=== PATIENT | male | born 1955 | race Caucasian/White ===

== ENCOUNTER → 2016-05-12 | Outpatient (CLI) | payer BC | END | disposition home or self-care (01) ==

== ENCOUNTER → 2016-10-07 | Outpatient (CLI) | payer BC ==
--- NOTE | 2016-10-07 15:46 | MR ---
EXAMINATION TYPE: MR iac wo/w con DATE OF EXAM: 10/07/2016 COMPARISON: NONE HISTORY: vertigo CONTRAST: Performed utilizing 15 mL intravenous MultiHance gadolinium contrast. TECHNIQUE: Multiplanar, multiecho imaging on a 3.0 [place] magnet is performed through the brain. Atte ntion is paid to the internal auditory canals with thin section imaging. Postcontrast imaging is per formed through the internal auditory canals. FINDINGS:Craniovertebral junction is normal. The pituitary is normal. Diffusion-weighted imaging is performed. No suspicious hyperintensity is present to suggest an acute intracranial infarct or acute ischemic area. Signal within the brain is normal.. Thin section imaging is performed through the internal auditory canals and cerebellar pontine angles. No cerebellar pontine angle masses are evident. The internal auditory canals appear normal without expansion or erosion. Postcontrast imaging was performed. No suspicious enhancement is evident within the internal audito ry canals or the included portions of the brain. Note is made of some minimal mucosal thickening within maxillary sinuses. Mucosal thickening is withi n the anterior ethmoid air cells. Mastoid air cells are clear. IMPRESSIONS:1. Normal internal auditory canals.
== END | disposition home or self-care (01) ==
LOC: RADMRIMAIN 11:58
PROVIDERS: ATTEND Otolaryngology
DX: R42 Dizziness and giddiness (principal)
CPT/HCPCS: 70553; A9577

== ENCOUNTER → 2016-10-07 | Outpatient (CLI) | payer BC ==
--- NOTE | 2016-10-07 11:41 | US ---
EXAMINATION TYPE: US liver DATE OF EXAM: 10/07/2016 COMPARISON: NONE CLINICAL HISTORY: Elevated Liver Enzymes R74.8. Elevated LFT's EXAM MEASUREMENTS: Liver Length: 12.1 cm Gallbladder Wall: 0.2 cm CBD: 0.4 cm Right Kidney: 10.5 x 4.9 x 4.1 cm Pancreas: Obscured by bowel gas Liver: Heterogeneous, left lobe appeared enlarged, while right lobe appeared small in size Gallbladder: wnl Evidence for sonographic Jaramillo's sign: No CBD: wnl Right Kidney: wnl IMPRESSION: 1. No suspicious acute changes . Shunt abdomen is visualized appears normal
== END | disposition home or self-care (01) ==
LOC: RADUSWWP 10:52
PROVIDERS: ATTEND Family Medicine
DX: R74.8 Abnormal levels of other serum enzymes (principal); Z95.828 Presence of other vascular implants and grafts
CPT/HCPCS: 76705

== ENCOUNTER → 2016-11-21 | Outpatient (CLI) | payer BC ==
[2016-11-21 13:06] LABS: Blood Urea Nitrogen 16 mg/dL (9-20); Non-African American GFR(MDRD) >60 (>60 ml/min/1.73 sqM)
--- NOTE | 2016-11-21 14:23 | MR ---
EXAMINATION TYPE: MR angio head wo con DATE OF EXAM: 11/21/2016 COMPARISON: NONE HISTORY: transient alteration of awareness per order, imbalance per patient. TECHNIQUE: Time of flight images focusing on the [place] were performed without contrast.. 2-D and 3-D postprocessing imaging is performed. FINDINGS: There is codominant vertebrobasilar system. Vertebral arteries are patent to basilar juncti on. There is patent right-sided posterior communicating artery. There is hypoplastic left posterior c ommunicating artery. No significant stenosis or aneurysmal change is seen in the posterior circulatio n. Images of the anterior circulation show patent anterior communicating artery. There is no significant focal stenosis or aneurysmal change in the anterior circulation. IMPRESSION: No significant focal stenosis or aneurysmal change at the level of the [place].
--- NOTE | 2016-11-21 15:00 | MR ---
EXAMINATION TYPE: MR brain wo/w con DATE OF EXAM: 11/21/2016 COMPARISON: MRI internal auditory canal October 07, 2016. HISTORY: transient alteration of awareness (R40.4) per order, imbalance TECHNIQUE: Multiplanar, multisequence images of the brain and brainstem is performed without and with IV contras t, utilizing 16 mL intravenous MultiHance . FINDINGS: Diffusion weighted images demonstrate no evidence of a recent infarct or other diffusion ab normality. There is no extra-axial fluid collection or significant white matter signal abnormality. The ventricular system and cisternal spaces are normal in size and appearance. The brain volume is age appropriate. Midline structures demonstrate normal morphology. The craniocervical junction appears within normal limits. Post contrast images demonstrate no abnormal enhancement. The dural venous sinuses appear pa tent. There is mild mucosal thickening involving anterior ethmoid sinuses bilaterally otherwise the p aranasal sinuses are grossly clear. The globes are intact bilaterally. No suspicious fluid signal in the bilateral mastoid air cells is present. IMPRESSION: No significant finding is seen to account for patient's symptoms.
== END | disposition home or self-care (01) ==
LOC: RADMRIMAIN 12:29
PROVIDERS: ATTEND Psychiatry & Neurology Neurology
DX: R40.4 Transient alteration of awareness (principal); Z88.0 Allergy status to penicillin
CPT/HCPCS: 82565; 84520; 70544; 70553; A9577

== ENCOUNTER → 2017-01-23 | Outpatient (CLI) | payer BC ==
--- NOTE | 2017-01-23 09:30 | US ---
EXAMINATION TYPE: US liver DATE OF EXAM: 01/23/2017 COMPARISON: Liver ultrasound October 07, 2016 CLINICAL HISTORY: Abnormal Liver Enzymes R94.5. patient states alcohol abuse EXAM MEASUREMENTS: Liver Length: 13.6 cm Gallbladder Wall: 0.2 cm CBD: 0.5 cm Right Kidney: 10.7 x 4.6 x 5.0 cm Pancreas: limited views appear, wnl Liver: difficult to penetrate Gallbladder: wnl Evidence for sonographic Jaramillo's sign: no CBD: wnl Right Kidney: wnl Visualized pancreas is slightly heterogeneous. Visualized liver is heterogeneous in appearance withou t intrahepatic ductal dilatation. Evaluation for focal masses is suboptimal due to the heterogeneity. No significant change from prior study is seen. No significant ascites is seen on images saved. IMPRESSION: Persistent heterogeneous hyperechoic appearance of liver could reflect product of diffuse fatty infiltration or underlying hepatocellular disease. Imaging guided random biopsy for tissue mounika lysis can be performed if desired.
== END | disposition home or self-care (01) ==
LOC: RADUSWWP 08:14
PROVIDERS: ATTEND Family Medicine
DX: K76.89 Other specified diseases of liver (principal)
CPT/HCPCS: 76705

== ENCOUNTER 2020-08-24 15:56 | Inpatient (IN) | payer BC ==
[2020-08-24] MEDS ORDERED: SODIUM CHLORIDE 0.9% 1,000 ML IV ONE (16:41)
--- NOTE | 2020-08-24 16:55 | ED ---
Altered Mental Status HPI - General Chief Complaint: Altered Mental Status Stated Complaint: Confusion Time Seen by Provider: 08/24/20 16:00 Source: patient Mode of arrival: wheelchair Limitations: altered mental status - History of Present Illness Initial Comments: Patient is a 65-year-old male with past medical history of alcoholism who presents to the emergency department with reported altered mental status. Brother does accompany the patient helps provide the history. States that his brother drinks daily. He did speak with him on Monday and the patient was his normal intoxicated self. Yesterday was the patient's birthday. He was drinking heavily. States that he was talking to him on the phone and the patient was significantly confused. Reports that the patient was not familiar with his birthdate and was not answering questions appropriately. He thought this was due to his intoxicated state. Brother then checked on the patient earlier this morning. Patient reports that he did not have a drink after 6 PM last night. He continued to be confused. Patient denies previous history of stroke. Unsure if he fell and hit his head while intoxicated. Patient is not on any blood thinners. Reports that he does have a history of A. fib however had a cardioversion and has not had any issues. Patient denies any fevers or chills. No sick contacts. Does admit to a headache. No visual changes. Denies any weakness in his upper or lower extremities. Patient does have repetitive questioning however no dysarthria. No other alleviating, precipitating or modifying factors - Related Data Home Medications Medication Instructions Recorded Confirmed Acetaminophen Tab [Tylenol] 325 mg PO DAILY PRN 08/24/20 08/24/20 Allergies Allergy/AdvReac Type Severity Reaction Status Date / Time Penicillins Allergy Unknown Verified 08/24/20 19:11 Childhood Review of Systems ROS Statement: Those systems with pertinent positive or pertinent negative responses have been documented in the HPI. ROS Other: All systems not noted in ROS Statement are negative. Past Medical History Past Medical History: Hypertension, Sleep Apnea/CPAP/BIPAP Additional Past Medical History / Comment(s): CPAP. PATIENT STATES HIS BLOOD PRESSURE HAS BEEN ELEVATED RECENTLY. ETOH abuse History of Any Multi-Drug Resistant Organisms: None Reported Past Surgical History: Back Surgery Additional Past Surgical History / Comment(s): CERVICAL. Past Anesthesia/Blood Transfusion Reactions: No Reported Reaction Past Psychological History: No Psychological Hx Reported Smoking Status: Current every day smoker Past Alcohol Use History: Abuse Past Drug Use History: None Reported, Marijuana General Exam Limitations: altered mental status General appearance: alert, anxious, other (confused) Head exam: Present: atraumatic, normocephalic, normal inspection Eye exam: Present: normal appearance, PERRL, EOMI. Absent: scleral icterus, conjunctival injection, periorbital swelling ENT exam: Present: normal exam, mucous membranes moist Neck exam: Present: normal inspection. Absent: tenderness, meningismus, lymphadenopathy Respiratory exam: Present: normal lung sounds bilaterally. Absent: respiratory distress, wheezes, rales, rhonchi, stridor Cardiovascular Exam: Present: regular rate, irregular rhythm, normal heart sounds. Absent: systolic murmur, diastolic murmur, rubs, gallop, clicks GI/Abdominal exam: Present: soft, normal bowel sounds. Absent: distended, tenderness, guarding, rebound, rigid Neurological exam: Present: alert, other (confused. oriented x 1. Repetative questioning) Psychiatric exam: Present: anxious Skin exam: Present: warm, dry, intact, normal color. Absent: rash Course Vital Signs 08/24/20 08/24/20 08/24/20 16:02 19:28 20:29 Temperature 98.5 F Pulse Rate 97 102 H 83 Respiratory 18 18 18 Rate Blood Pressure 148/97 151/109 143/98 O2 Sat by Pulse 98 98 97 Oximetry - Reevaluation(s) Reevaluation #1: Spoke with Dr. Chavez - recommends CTA. Neurointerventionalist is paged 08/24/20 18:31 Reevaluation #2: 08/24/20 19:[address] Worrell - reviewing images Reevaluation #3: Spoke with Dr. Worrell who states the patient is too far past intervention - recommends aspirin and permissive hypertension. 08/24/20 20:21 Medical Decision Making - Medical Decision Making Upon arrival patient is placed into room 2. A thorough history and physical exam was performed. Patient does have global confusion however no focal neurologic deficits. IV is established. Laboratory studies were conducted. 12-lead EKG was performed which demonstrates the patient is currently in A. fib. Laboratory studies are reviewed and demonstrated a sodium of 130. AST and ALT are mildly elevated. Patient is sent over for a CT of his brain which does demonstrate a left MCA territory hypoattenuating area, suggestive of subacute/chronic infarct. Superimposed acute infarct cannot be entirely excluded. Because of this reason I did speak with Dr. Chavez for further recommendations. He does recommend CT angiography. The patient is placed in the stroke robot and does goes for CT of his head and neck. I do speak with the radiologist who states that angiography demonstrates near complete occlusion of the proximal left MCA M2 segment posterior division. Moderate left and right proximal ICA stenosis. I do speak with Dr. Worrell in regards to these findings. Inform him that the patient's last known well was on Monday. Dr. Worrell states that the stroke has completed itself at this time the patient would only benefit from an aspirin and permissive hypertension. The patient is given a liter bolus of saline and placed on 100 mL per hour. He does have an episode of A. fib with RVR however he was given Ativan and does have improvement in his heart rate. I did speak with Dr. wray who agree to admit the patient. Patient is placed on alcohol withdrawal protocol. I will consult neurology and cardiology on the floor. Patient remained in stable condition - Lab Data Result diagrams: 08/24/20 16:25 08/24/20 16:25 Lab Results 08/24/20 08/24/20 08/24/20 Range/Units 16:25 16:25 16:25 WBC 6.8 (3.8-10.6) k/uL RBC 5.08 (4.30-5.90) m/uL Hgb 18.1 H (13.0-17.5) gm/dL Hct 51.0 (39.0-53.0) % MCV 100.3 H (80.0-100.0) fL MCH 35.6 H (25.0-35.0) pg MCHC 35.5 (31.0-37.0) g/dL RDW 13.6 (11.5-15.5) % Plt Count 191 (150-450) k/uL MPV 8.7 Neutrophils % 78 % Lymphocytes % 12 % Monocytes % 7 % Eosinophils % 2 % Basophils % 1 % Neutrophils # 5.4 (1.3-7.7) k/uL Lymphocytes # 0.8 L (1.0-4.8) k/uL Monocytes # 0.5 (0-1.0) k/uL Eosinophils # 0.1 (0-0.7) k/uL Basophils # 0.0 (0-0.2) k/uL PT (9.0-12.0) sec INR (<1.2) APTT (22.0-30.0) sec Sodium 130 L (137-145) mmol/L Potassium 4.2 (3.5-5.1) mmol/L Chloride 97 L (98-107) mmol/L Carbon Dioxide 23 (22-30) mmol/L Anion Gap 10 mmol/L BUN 9 (9-20) mg/dL Creatinine 0.77 (0.66-1.25) mg/dL Est GFR (CKD-EPI)AfAm >90 (>60 ml/min/1.73 sqM) Est GFR (CKD-EPI)NonAf >90 (>60 ml/min/1.73 sqM) Glucose 135 H (74-99) mg/dL Calcium 9.5 (8.4-10.2) mg/dL Total Bilirubin 1.5 H (0.2-1.3) mg/dL AST 67 H (17-59) U/L ALT 82 H (4-49) U/L Alkaline Phosphatase 89 (38-126) U/L Ammonia (<30) umol/L Creatine Kinase 79 (55-170) U/L Troponin I <0.012 (0.000-0.034) ng/mL Total Protein 7.5 (6.3-8.2) g/dL Albumin 4.4 (3.5-5.0) g/dL Serum Alcohol <10 mg/dL 08/24/20 08/24/20 Range/Units 16:25 18:52 WBC (3.8-10.6) k/uL RBC (4.30-5.90) m/uL Hgb (13.0-17.5) gm/dL Hct (39.0-53.0) % MCV (80.0-100.0) fL MCH (25.0-35.0) pg MCHC (31.0-37.0) g/dL RDW (11.5-15.5) % Plt Count (150-450) k/uL MPV Neutrophils % % Lymphocytes % % Monocytes % % Eosinophils % % Basophils % % Neutrophils # (1.3-7.7) k/uL Lymphocytes # (1.0-4.8) k/uL Monocytes # (0-1.0) k/uL Eosinophils # (0-0.7) k/uL Basophils # (0-0.2) k/uL PT 11.1 (9.0-12.0) sec INR 1.1 (<1.2) APTT 22.9 (22.0-30.0) sec Sodium (137-145) mmol/L Potassium (3.5-5.1) mmol/L Chloride (98-107) mmol/L Carbon Dioxide (22-30) mmol/L Anion Gap mmol/L BUN (9-20) mg/dL Creatinine (0.66-1.25) mg/dL Est GFR (CKD-EPI)AfAm (>60 ml/min/1.73 sqM) Est GFR (CKD-EPI)NonAf (>60 ml/min/1.73 sqM) Glucose (74-99) mg/dL Calcium (8.4-10.2) mg/dL Total Bilirubin (0.2-1.3) mg/dL AST (17-59) U/L ALT (4-49) U/L Alkaline Phosphatase (38-126) U/L Ammonia 13 (<30) umol/L Creatine Kinase (55-170) U/L Troponin I (0.000-0.034) ng/mL Total Protein (6.3-8.2) g/dL Albumin (3.5-5.0) g/dL Serum Alcohol mg/dL - EKG Data EKG Comments: EKG demonstrates A. fib with a rate of 98. QRS 86. QTC of 388. Inverted T- wave in aVL. No acute ST segment elevations Critical Care Time Critical Care Time: Yes Critical Care Time: 32 minutes for multiple consultations with neurology and neurointensivist. Disposition Clinical Impression: Alcohol abuse, A-fib, CVA (cerebral vascular accident), Encephalopathy acute Disposition: ADMITTED IP TO THIS HOSP Condition: Serious Is patient prescribed a controlled substance at d/c from ED?: No Decision to Admit Reason: Admit from EC Decision Date: 08/24/20 Decision Time: 20:22
[2020-08-24 17:21] LABS: Basophils % (A) 1 %; Eosinophils # (A) 0.1 k/uL (0-0.7); Eosinophils % (A) 2 %; HGB 18.1 gm/dL (13.0-17.5); Lymphocytes # (A) 0.8 k/uL (1.0-4.8); Lymphocytes % (A) 12 %; MCH 35.6 pg (25.0-35.0); MCHC 35.5 g/dL (31.0-37.0); MCV 100.3 fL (80.0-100.0); Mean Platelet Volume 8.7; Monocytes # (A) 0.5 k/uL (0-1.0); Monocytes % (A) 7 %; Neutrophils # (A) 5.4 k/uL (1.3-7.7); Neutrophils % (A) 78 %; Platelet Count 191 k/uL (150-450); RBC 5.08 m/uL (4.30-5.90); RDW 13.6 % (11.5-15.5); WBC 6.8 k/uL (3.8-10.6)
[2020-08-24 17:31] LABS: ALT 82 U/L (4-49); AST 67 U/L (17-59); African American GFR (CKD) >90 (>60 ml/min/1.73 sqM); Albumin 4.4 g/dL (3.5-5.0); Alcohol <10 mg/dL; Alkaline Phosphatase 89 U/L (38-126); Anion Gap 10 mmol/L; Blood Urea Nitrogen 9 mg/dL (9-20); Calcium 9.5 mg/dL (8.4-10.2); Carbon Dioxide 23 mmol/L (22-30); Chloride 97 mmol/L (98-107); Creatine Kinase 79 U/L (55-170); Glucose 135 mg/dL (74-99); Non-African American GFR(CKD) >90 (>60 ml/min/1.73 sqM); Potassium 4.2 mmol/L (3.5-5.1); Sodium 130 mmol/L (137-145); Total Bilirubin 1.5 mg/dL (0.2-1.3); Total Protein 7.5 g/dL (6.3-8.2)
--- NOTE | 2020-08-24 18:06 | CT ---
EXAM: CT brain wo con CLINICAL HISTORY: Memory loss and confusion. COMPARISON: MR 11/21/2016. TECHNIQUE: Contiguous axial noncontrast images of the brain were obtained. Coronal and sagittal refor mats were generated and reviewed. Automated dose control was used for this exam. FINDINGS: There is no evidence for intracranial hemorrhage, mass effect or midline shift. There is interval mod erate hypoattenuation of the left MCA territory. Ventricular size and configuration is within normal limits for degree of parenchymal volume. The paranasal sinuses are clear. The mastoid air cells are clear. No evidence for calvarial fracture. IMPRESSION: Interval left MCA territory hypoattenuating area, suggestive of subacute/chronic infarct. Superimpose d acute infarct cannot be entirely excluded. If there is continued clinical concern, recommend MRI fo r further evaluation. No acute intracranial hemorrhage or midline shift.
[2020-08-24 19:13] LABS: INR 1.1 (<1.2); Partial Thromboplastin Time 22.9 sec (22.0-30.0); Prothrombin Time 11.1 sec (9.0-12.0)
[2020-08-24] MEDS ORDERED: LORazepam 2 MG/ML INJ IV STA (19:19)
--- NOTE | 2020-08-24 19:20 | CT ---
EXAM: CTA HEAD AND NECK INDICATION: Effusion COMPARISON: MR 11/21/2016. TECHNIQUE: CTA of the head and neck were performed with multiplanar and MIP reformats generated and r eviewed. Stenosis evaluation is based on [place] Symptomatic Carotid Endarterectomy Trial (FORTUNATO CET). 65 mL Isovue 370 intravenous contrast was administered. FINDINGS: There is normal three-vessel branching of the aorta. There is moderate approximately 50% stenosis of the left proximal ICA and mild less than 50% stenosis of the right proximal ICA. The remainder of the bilateral common carotid, cervical internal carotid and vertebral arteries are grossly patent. No ev idence of dissection or aneurysm. There is near complete occlusion of the left MCA proximal M2 segment posterior division. There is dec reased collateral vessels. The remainder of the intracranial internal carotid arteries, anterior, mid dle and posterior cerebral arteries as well as in the imaged vertebral and basilar arteries are paten t. No evidence of aneurysm. The communicating arteries are unremarkable. IMPRESSION: Near-complete occlusion of the proximal left MCA M2 segment posterior division. Moderate left and mild right proximal ICA stenosis. Findings were reported to caring physician by me at the time of dictation.
--- NOTE | 2020-08-24 19:34 | XR ---
EXAMINATION TYPE: XR chest 2V DATE OF EXAM: 08/24/2020 COMPARISON: 09/22/2014. HISTORY: Altered mental status. TECHNIQUE: Frontal and lateral views of the chest are obtained. FINDINGS: There is no focal air space opacity, pleural effusion, or pneumothorax seen. The cardiac silhouette size is within normal limits. The osseous structures are intact. Cervical spine fusion s een. IMPRESSION: No acute cardiopulmonary process.
[2020-08-24] MEDS ORDERED: ASPIRIN 325 MG TAB PO STA (20:10)
[2020-08-24] MEDS ORDERED: NALOXONE 0.4 MG/ML 1 ML VIAL IV PRN (20:22)
[2020-08-24] MEDS ORDERED: THIAMINE 100 MG/ML 2 ML VIAL IM STA (20:24)
[2020-08-24] MEDS ORDERED: LORazepam 2 MG/ML INJ IV PRN ×3 (20:24)
[2020-08-24] MEDS: 0.9% NACL WITH KCL 20 MEQ/L 1,000 ML IV SCH (21:52)
[2020-08-24] MEDS ORDERED: ATORVASTATIN 80 MG TAB PO SCH (23:30)
[2020-08-24] MEDS ORDERED: CLOPIDOGREL 75 MG TAB PO SCH (23:45)
[2020-08-25] MEDS: FAMOTIDINE 20 MG TAB PO SCH ×3 (00:04→20:13)
[2020-08-25] MEDS: THIAMINE 100 MG TAB PO SCH ×2 (06:31→17:44)
[2020-08-25] MEDS: 0.9% NACL WITH KCL 20 MEQ/L 1,000 ML IV SCH ×2 (06:52→16:58)
[2020-08-25 08:13] LABS: Cholesterol 155 mg/dL (<200); HDL Cholesterol 52 mg/dL (40-60); LDL Cholesterol,Calculated 82 mg/dL (0-99); Triglycerides 103 mg/dL (<150)
--- NOTE | 2020-08-25 08:45 | P.CNNES ---
History of Present Illness Consult date: 08/24/20 Requesting physician: Catherine Dickson Reason for Consult: Acute CVA History of Present Illness: Patient is a 65-year-old right-handed male came to the hospital today at 4 PM, brought by a friend for possible stroke. Patient states that on late 08/21/2020, all of a sudden he had a blackout spell. He does not know what he was doing at that time. He does not remember details about it. However he remembers that after this spell, something changed and he had problems with memory. He states that he came to the hospital to be checked out, wants to see "what is happening to me". He has trouble remembering things in the last couple days. Denies any numbness or tingling. He has developed pain in the head when he coughs in the last few days. It involves bifrontal region and it is a bad headache. He states he never gets a headache ever in his life. Apparently his friend came over and saw him with confusion. Patient also drinks half a gallon to a gallon of captbhumika Azul every day. Patient denies any numbness tingling or any focal weakness. Vital signs arrival blood pressure 148/97, pulse rate 97, temperature 98.5. CT head showed interval left MCA territory hypoattenuation, suggestive of subac [place]/chronic infarct. Superimposed acute infarct cannot be entirely excluded. MRI recommended. No acute hemorrhage. There is hyperdensity noted in the left MCA on my review. CTA of head and neck revealed near complete occlusion of the proximal left MCA M2 segment posterior division. Moderate left and mild right proximal ICA stenosis. Chest x-ray showed no acute cardiopulmonary disease. EKG shows atrial fibrillation. Blood test shows normal WBC, hemoglobin 18.1, elevated MCV 100.3, platelets 191. PT/PTT normal, sodium 130, potassium 4.2, normal renal functions. AST 67, ALP 82. CPK and troponin negative. Blood alcohol level negative. Patient states that he has smoked couple pack per day all his life for last 50 years. He denies diabetes area does not take any aspirin or any medications on a regular basis. Review of Systems As mentioned above in detail. Denies any double vision, no loss of vision denies any numbness tingling. No chest pain abdominal pain nausea vomiting diarrhea. Past Medical History Past Medical History: Atrial Fibrillation, Hypertension, Sleep Apnea/CPAP/BIPAP Additional Past Medical History / Comment(s): CPAP. PATIENT STATES HIS BLOOD PRESSURE HAS BEEN ELEVATED RECENTLY. ETOH abuse History of Any Multi-Drug Resistant Organisms: None Reported Past Surgical History: Back Surgery Additional Past Surgical History / Comment(s): CERVICAL. Past Anesthesia/Blood Transfusion Reactions: No Reported Reaction Past Psychological History: No Psychological Hx Reported Smoking Status: Current every day smoker Past Alcohol Use History: Abuse Additional Past Alcohol Use History / Comment(s): PAST HX OF ABUSE Past Drug Use History: None Reported, Marijuana Medications and Allergies Home Medications Medication Instructions Recorded Confirmed Type Acetaminophen Tab [Tylenol] 325 mg PO DAILY PRN 08/24/20 08/24/20 History Allergies Allergy/AdvReac Type Severity Reaction Status Date / Time Penicillins Allergy Unknown Verified 08/24/20 19:11 Childhood Physical Examination - Vital Signs Vital Signs: Vital Signs Temp Pulse Resp BP Pulse Ox 08/24/20 20:29 83 18 143/98 97 08/24/20 19:28 102 H 18 151/109 98 08/24/20 16:02 98.5 F 97 18 148/97 98 Intake and Output 08/24/20 08/24/20 08/24/20 06:59 14:59 22:59 Other: Weight 81.647 kg On examination patient is a late middle aged male, in no acute distress. He is alert and awake. He states it is 08/24/2012, but then said was 2010 and then finally said by himself it is 2020. He knows name of the current president and that he is in [facility]. Patient can name without difficulty, however he cannot repeat. His speech is fluent, has some times hesitancy in speaking. I did not notice any obvious paraphasic errors. He has intact comprehension, but required repeated and numerous attempts before he was able to follow directions like "point to the window, or point to the ceiling", and "show me your thumb". However he did perform it correctly. Patient was able to read without much difficulty but had slight difficulty following the commands. Slow mentation. On cranial examination pupils are round and reactive to light, visual briceno are full on confrontation, extraocular muscles are intact with no nystagmus. Face is symmetric, tongue protrudes to the midline. Palatal elevation and sensation normal, hearing is slightly decreased and shoulder shrug normal, facial sensation normal. On muscle strength testing there is no pronator drift and the strength is normal in arms and legs, distally and proximally. Deep tendon reflexes are 1+ and plantars downgoing. Sensory to touch is equal with no neglect. No ataxia for [id number] testing, tone and bulk of muscles normal. Gait deferred. On general examination there is no carotid bruit or murmur, peripheral pulses present, abdomen soft nontender, chest clear. S1 and S2 audible. Results - Laboratory Findings CBC and BMP: 08/24/20 16:25 08/24/20 16:25 Abnormal Lab Findings: Abnormal Labs 08/24/20 08/24/20 16:25 16:25 Hgb 18.1 H MCV 100.3 H MCH 35.6 H Lymphocytes # 0.8 L Sodium 130 L Chloride 97 L Glucose 135 H Total Bilirubin 1.5 H AST 67 H ALT 82 H Assessment and Plan Assessment: * Acute to subacute ischemic stroke involving the left MCA vascular territory. The stroke probably happened likely 3 days prior to arrival, on Monday evening. Patient's clinical symptoms consist of mainly conduction aphasia with no other deficits. CTA of head and neck showed near-complete occlusion of the proximal left MCA, M2 segment posterior division. Mechanism of stroke likely cardioembolic from new onset atrial fibrillation. * History of alcoholism * Elevated liver enzymes, likely due to alcoholism * Tobacco use Plan: * Patient will undergo MRI of the brain, to evaluate for an acute stroke, rule out any hemorrhagic conversion. * Patient's CTA of the head showed "near complete occlusion of the proximal left MCA M2 segment posterior division". Patient has already been started on aspirin 325 mg. We will also add Plavix 75 mg for prevention of stroke progression. * 2-D echo with bubble study to rule out PFO. * Continue telemetry monitoring. * Fasting a.m. lipid panel, hemoglobin A1c. * Patient has history of alcoholism. Watch for alcohol withdrawals. * Recommend complete tobacco cessation.
[2020-08-25] MEDS ORDERED: APIXABAN 5 MG TAB PO SCH (09:00)
[2020-08-25] MEDS ORDERED: METOPROLOL TARTRATE 12.5 MG TAB PO SCH (09:15)
[2020-08-25] MEDS ORDERED: ASPIRIN 325 MG TAB PO SCH (09:15)
--- NOTE | 2020-08-25 11:08 | ECHOF ---
Referral Reason:CVA MEASUREMENTS -------- HEIGHT: 177.8 cm WEIGHT: 78.0 kg BP: 145/92 IVSd: 1.5 cm (0.6 - 1.1) LVIDd: 3.4 cm (3.9 - 5.3) LVPWd: 1.3 cm (0.6 - 1.1) IVSs: 2.0 cm LVIDs: 1.8 cm LVPWs: 2.0 cm Ao Diam: 2.9 cm (2.0 - 3.7) AV Cusp: 1.7 cm (1.5 - 2.6) LA Diam: 1.9 cm (2.7 - 3.8) MV E Ced: 0.58 m/s MV DecT: 151 ms MV A Ced: 0.35 m/s MV E/A Ratio: 1.65 FINDINGS -------- Atrial fibrillation. This was a technically difficult study with suboptimal views. The left ventricular size is normal. There is mild concentric left ventricular hypertrophy. Overa ll left ventricular systolic function is normal with, an EF between 55 - 60 %. The right ventricle is normal in size. The left atrial size is normal. The right atrium was not well visualized. Contrast study was performed with 1 iv injection of 8 ccs of agitated normal saline at rest. Lumason used Bubble study done to rule out shunt. Uable to rule out shunt due to poor image quality. The aortic valve was not well visualized. The mitral valve was not well visualized. The tricuspid valve was not well visualized. Trace tricuspid regurgitation present. Right ventric ular systolic pressure is normal at < 35 mmHg. There is no evidence of pulmonary hypertension. The pulmonic valve was not well visualized. The aortic root size is normal. Normal inferior vena cava with normal inspiratory collapse consistent with estimated right atrial pre ssure of 5 mmHg. There is no pericardial effusion. CONCLUSIONS -------- 1. Atrial fibrillation. 2. This was a technically difficult study with suboptimal views. 3. There is mild concentric left ventricular hypertrophy. 4. Overall left ventricular systolic function is normal with, an EF between 55 - 60 %. 5. The left atrial size is normal. 6. Bubble study done to rule out shunt. Due to poor image quality unable to rule out shunt. 7. The aortic valve was not well visualized. 8. The mitral valve was not well visualized. 9. Trace tricuspid regurgitation present. 10. There is no pericardial effusion. BELT PRESS OPERATOR: Mary Jo Quinonez RDCS
[2020-08-25] MEDS ORDERED: ENOXAPARIN 40 MG/0.4 ML SYRINGE SQ SCH (12:15)
[2020-08-25 12:31] LABS: Hemoglobin A1C 5.4 % (4.0-6.0)
--- NOTE | 2020-08-25 12:36 | P.CRDCN ---
History of Present Illness History of present illness: HISTORY OF PRESENTING ILLNESS This is a pleasant 65-year-old male past medical history significant for SVT, paroxysmal atrial fibrillation and atrial flutter, hypertension, alcohol use, chronic nicotine dependence.. He follows in the office with Dr. Magdaleno. We have been asked to see in consultation for atrial fibrillation . Patient is seen and examined no acute distress. Patient presented to the emergency department yesterday brought in by a friend for possible stroke. On 08/21/2020 patient had a blackout spell, he does not remember distress about this. CT of the head showed interval left MCA territory hypoattenuation, suggestive of a subacute/chronic infarct. Superimposed acute infarct cannot be excluded. CT of the head and the neck revealed near complete occlusion of the proximal left MCA M2 segment posterior division. Moderate left and mild right proximal ICA stenosis. Chest x-ray showed no acute cardiopulmonary process. EKG revealed atrial fibrillation, heart rate 98, left axis deviation. Patient denies history of diabetes, previous stroke, or [place] In 2015: Holter Monitor (09/2014) revealed sinus rhythm and paroxysmal atrial fibrillation with RVR. Event recorder12/2014- revealed sinus rhythm, short bursts of atrial tachycardia. Atrial tachycardia initiates atrial flutter and subsequently degenerates into atrial fibrillation. 02/2015: Patient underwent Diagnostic EP study revealing AV afshan reentry. Successful mapping and ablation was performed and successful slow pathway modification was performed. Flutter ablation was not performed. DIAGNOSTICS Most recent Holter monitor results in 2016revealed sinus mechanism with heart rate ranging from 50-107, no bradycardia, no pauses, no arrhythmia Telemetry tracings indicate atrial fibrillation heart rate 70s to 80s. Laboratory reviewed, troponin negative 1, COVID-19 negative, renal function stable, sodium 1:30, potassium 4.2, triglycerides 103, cholesterol 135, LDL 82, HDL 52 Current home cardiac medications none Patient currently being maintained on atorvastatin 40 mg nightly, aspirin 325 mg daily, Plavix 75 mg daily REVIEW OF SYSTEMS At the time of my exam: CONSTITUTIONAL: Denies fever or chills. CARDIOVASCULAR: Denies chest pain, shortness of breath, orthopnea, PND or palpitations. RESPIRATORY: +cough. GASTROINTESTINAL: Denies abdominal pain, diarrhea, constipation, nausea or vomiting. MUSCULOSKELETAL: Denies myalgias. NEUROLOGIC: +headache +loss of consciousness Denies numbness, tingling, or weakness. ENDOCRINE: Denies fatigue, weight change, polydipsia or polyurina. GENITOURINARY: Denies burning, hematuria or urgency with micturation. HEMATOLOGIC: Denies history of anemia or bleeding. PHYSICAL EXAMINATION CONSTITUTIONAL: No apparent distress. HEENT: Head is normocephalic. Pupils are equal, round. Sclerae anicteric. Mucous membranes of the mouth are moist. No JVD. No carotid bruit. CHEST EXAMINATION: Lungs are clear to auscultation. No chest wall tenderness is noted on palpation or with deep breathing. HEART EXAMINATION: Irregular rate and rhythm. S1, S2 heard. No murmurs, gallops or rub. ABDOMEN: Soft, nontender. Positive bowel sounds. EXTREMITIES: 2+ peripheral pulses, no lower extremity edema and no calf tenderness. SKIN: intact NEUROLOGIC EXAMINATION: Patient is awake, alert and oriented x3. ASSESSMENT Paroxysmal atrial fibrillation- [id number] score 3 Acute subacute ischemic stroke involving left MCA vascular territoryneuro ologies following Hypertension History of atrial flutter Alcohol dependence- drinks half of a gallon of [employer] every day Nicotine dependence- smoked 1-2 PPD for the last 50 yeras PLAN -2D echocardiogram with bubble study ordered- revealed EF 55-60%, bubble study done to rule out shunt. Due to poor image quality unable to rule out shunt. Aortic valve not well visualized, mitral valve not well visualized, trace tricuspid regurgitation. -Rate control: metoprolol tartrate 12.5mg BID -Will hold off on anticoagulation per neurology until MRI brain -Plan for MRI brain -Continue telemetry -Smoking and alcohol cessation discussed and encouraged with patient -Further recommendations based on clinical course Nurse Practitioner note has been reviewed, I agree with a documented findings and plan of care. Patient was seen and examined. Past Medical History Past Medical History: Atrial Fibrillation, Hypertension, Sleep Apnea/CPAP/BIPAP Additional Past Medical History / Comment(s): CPAP. PATIENT STATES HIS BLOOD PRESSURE HAS BEEN ELEVATED RECENTLY. ETOH abuse History of Any Multi-Drug Resistant Organisms: None Reported Past Surgical History: Back Surgery Additional Past Surgical History / Comment(s): CERVICAL. Past Anesthesia/Blood Transfusion Reactions: No Reported Reaction Past Psychological History: No Psychological Hx Reported Smoking Status: Current every day smoker Past Alcohol Use History: Abuse Additional Past Alcohol Use History / Comment(s): PAST HX OF ABUSE Past Drug Use History: None Reported, Marijuana Medications and Allergies Home Medications Medication Instructions Recorded Confirmed Type Acetaminophen Tab [Tylenol] 325 mg PO DAILY PRN 08/24/20 08/24/20 History Allergies Allergy/AdvReac Type Severity Reaction Status Date / Time Penicillins Allergy Unknown Verified 08/24/20 19:11 Childhood Physical Exam Vitals: Vital Signs Temp Pulse Pulse Resp BP BP Pulse Ox 08/25/20 03:35 98 F 88 17 145/92 97 08/24/20 23:29 98 19 155/98 99 08/24/20 21:30 97.7 F 72 19 165/98 99 08/24/20 20:29 83 18 143/98 97 08/24/20 19:28 102 H 18 151/109 98 08/24/20 16:02 98.5 F 97 18 148/97 98 Intake and Output 08/24/20 08/25/20 08/25/20 22:59 06:59 14:59 Other: # Voids 1 Weight 81.647 kg 78.2 kg Results 08/24/20 16:25 08/24/20 16:25 Cardiac Enzymes 08/24/20 08/24/20 Range/Units 16:25 16:25 AST 67 H (17-59) U/L Troponin I <0.012 (0.000-0.034) ng/mL Coagulation 08/24/20 Range/Units 18:52 PT 11.1 (9.0-12.0) sec APTT 22.9 (22.0-30.0) sec Lipids 08/25/20 Range/Units 07:17 Triglycerides 103 (<150) mg/dL Cholesterol 155 (<200) mg/dL HDL Cholesterol 52 (40-60) mg/dL CBC 08/24/20 Range/Units 16:25 WBC 6.8 (3.8-10.6) k/uL RBC 5.08 (4.30-5.90) m/uL Hgb 18.1 H (13.0-17.5) gm/dL Hct 51.0 (39.0-53.0) % Plt Count 191 (150-450) k/uL Comprehensive Metabolic Panel 08/24/20 Range/Units 16:25 Sodium 130 L (137-145) mmol/L Potassium 4.2 (3.5-5.1) mmol/L Chloride 97 L (98-107) mmol/L Carbon Dioxide 23 (22-30) mmol/L BUN 9 (9-20) mg/dL Creatinine 0.77 (0.66-1.25) mg/dL Glucose 135 H (74-99) mg/dL Calcium 9.5 (8.4-10.2) mg/dL AST 67 H (17-59) U/L ALT 82 H (4-49) U/L Alkaline Phosphatase 89 (38-126) U/L Total Protein 7.5 (6.3-8.2) g/dL Albumin 4.4 (3.5-5.0) g/dL Current Medications Generic Name Dose Route Start Last Admin Trade Name Freq PRN Reason Stop Dose Admin Aspirin 325 mg 08/25/20 09:15 Aspirin 325 Mg Tab PO DAILY ABILIO Atorvastatin Calcium 80 mg 08/24/20 23:30 08/25/20 00:02 Atorvastatin 80 Mg Tab PO 80 mg HS ABILIO Administration Clopidogrel Bisulfate 75 mg 08/26/20 09:00 Clopidogrel 75 Mg Tab PO DAILY ABILIO Famotidine 20 mg 08/25/20 00:00 08/25/20 00:04 Famotidine 20 Mg Tab PO 20 mg BID ABILIO Administration Potassium Chloride/Sodium Chloride 1,000 mls @ 100 mls/hr 08/24/20 20:30 08/25/20 06:52 Ns-Kcl 20 Meq/L Iv Solution IV 100 mls/hr .Q10H ABILIO Administration Lorazepam 1 mg 08/24/20 20:24 Lorazepam 2 Mg/Ml Inj IV Q2HR PRN CIWA 8 or 9 Lorazepam 1 mg 08/24/20 20:24 Lorazepam 2 Mg/Ml Inj IV Q1HR PRN CIWA 10 to 15 Lorazepam 2 mg 08/24/20 20:24 Lorazepam 2 Mg/Ml Inj IV 08/26/20 20:24 Q10M PRN CIWA 16 or higher Metoprolol Tartrate 12.5 mg 08/25/20 09:15 Metoprolol Tartrate 12.5 Mg Tab PO BID ABILIO Naloxone HCl 0.2 mg 08/24/20 20:22 Naloxone 0.4 Mg/Ml 1 Ml Vial IV Q2M PRN Opioid Reversal Thiamine HCl 100 mg 08/25/20 07:30 08/25/20 06:31 Thiamine 100 Mg Tab PO 100 mg BID-W/MEALS ABILIO Administration Intake and Output 08/24/20 08/25/20 08/25/20 22:59 06:59 14:59 Other: # Voids 1 Weight 81.647 kg 78.2 kg 08/24/20 16:25 08/24/20 16:25
--- NOTE | 2020-08-25 16:05 | P.PN ---
Subjective Progress Note Date: 08/25/20 Patient was seen for a follow-up. Patient is fully alert and awake, much more clear mentally. Patient is on CIWA protocol and last score was 3. Telemetry monitoring showing atrial fibrillation with heart rate in 70. Objective - Vital Signs Vital signs: Vital Signs Temp 98.9 F 08/25/20 11:45 Pulse 100 08/25/20 11:45 Resp 16 08/25/20 11:45 BP 122/89 08/25/20 11:45 Pulse Ox 100 08/25/20 11:45 Intake & Output 08/24/20 08/25/20 08/25/20 18:59 06:59 18:59 Intake Total 240 Balance 240 Weight 81.647 kg 78.2 kg Intake: Oral 240 Other: # Voids 1 - Exam On examination patient's mental status is normal. Speech is fluent, some perseveration noted. Some word hesitancy noted. Patient however can name very well. She has impaired repetition although able to repeat certain words. Patient has intact comprehension although requires multiple attempts, but he did perform correctly. Still gets headache when he coughs. On cranial examination, pupils are round and reacting to light, visual briceno are full on confrontation, extraocular muscles are intact with no nystagmus. Face is symmetric, tongue protrudes to the midline. Palatal elevation and sensation normal, hearing and shoulder shrug normal, facial sensation normal. Shoulder shrug normal. On muscle strength testing, there is no pronator drift and the strength is normal in arms and legs distally and proximally. Deep tendon reflexes are 1+ to 2+ and plantars are downgoing. Sensory to touch is equal with no neglect. Cerebellar function showed no ataxia for [id number] testing. No dysdiadochokinesia. Tone and bulk of muscles normal. Gait deferred. On general examination, there is no carotid bruit or murmur, S1-S2 audible. Abdomen is soft nontender. Chest is clear. Peripheral pulses are present. No edema. - Labs CBC & Chem 7: 08/24/20 16:25 08/24/20 16:25 Labs: Abnormal Lab Results - Last 24 Hours (Table) 08/24/20 08/24/20 Range/Units 16:25 16:25 Hgb 18.1 H (13.0-17.5) gm/dL MCV 100.3 H (80.0-100.0) fL MCH 35.6 H (25.0-35.0) pg Lymphocytes # 0.8 L (1.0-4.8) k/uL Sodium 130 L (137-145) mmol/L Chloride 97 L (98-107) mmol/L Glucose 135 H (74-99) mg/dL Total Bilirubin 1.5 H (0.2-1.3) mg/dL AST 67 H (17-59) U/L ALT 82 H (4-49) U/L Assessment and Plan Assessment: * Acute to subacute ischemic stroke involving the left MCA vascular territory. The stroke probably happened likely 3 days prior to arrival, on Monday evening. Patient's clinical symptoms consist of mainly conduction aphasia with no other deficits. CTA of head and neck showed near-complete occlusion of the proximal left MCA, M2 segment posterior division. Mechanism of stroke likely cardioembolic from new onset atrial fibrillation. * History of alcoholism * Elevated liver enzymes, likely due to alcoholism * Tobacco use Plan: * Await MRI of the brain, evaluate for extent of stroke and rule out any hemorrhagic conversion. * Patient's CTA of the head showed "near complete occlusion of the proximal left MCA M2 segment posterior division". Continue dual antiplatelet medications for now. * 2-D echo revealed atrial fibrillation. EF is 55-60%. Bubble study images were poor quality, therefore unable to rule out a shunt. * Telemetry monitoring showing atrial fibrillation with heart rate in 70s. * Fasting a.m. lipid panel with cholesterol 155, LDL 82, HDL 52 and triglyceride s 103. * Hemoglobin A1c 5.4 normal. * Patient has history of alcoholism. Watch for alcohol withdrawals. * Recommend complete tobacco cessation. * Patient will definitely need long-term anticoagulation. We will await MRI of the brain.
--- NOTE | 2020-08-25 16:23 | MR ---
"EXAMINATION TYPE: MR brain wo con DATE OF EXAM: 08/25/2020 COMPARISON: CT brain from yesterday. HISTORY: Acute CVA. Altered mental status and confusion. Acute onset neuro deficit on admission one d ay earlier. TECHNIQUE: Multiplanar, multisequence imaging of the brain and brainstem is performed without IV cont rast. FINDINGS: Diffusion weighted images demonstrate large area of increased signal on diffusion weighted images wit h diminished signal on ADC mapping involving the left temporal lobe lateral aspect with T2 hyperinten sity and T1 hypointensity in sulcal effacement, there is extension into the inferior left parietal lo be. Findings correlate with area of concern on recent CT.. Measures roughly 6 cm AP by 3 cm transvers oxana by 4 cm craniocaudal dimension. Smaller area of acute ischemia left parietal lobe subcortical reg ion. Background mild to moderate diffuse ventricular and sulcal prominence.. Midline structures demonstrate normal morphology. The craniocervical junction appears within normal limits. Normal vascular flow voids are present. The visualized sinuses are clear and the globes are i ntact. IMPRESSION: Confirmation of a evolving acute infarct left MCA distribution largest effect on the left temporal lobe with some left parietal lobe extension. A Yellow level critical message alert has been initiated for Maikel Montenegro MD via the [employer] [facility] 0 | Critical Results System on 08/25/2020 4:20 PM. This message alert has been sent to Maikel Montenegro MD via the preferences provided by the clinician for the receipt of Radiology Critical Findings. Mess age ID [id number]."
--- NOTE | 2020-08-25 19:42 | P.HPIM ---
History of Present Illness H&P Date: 08/25/20 Chief Complaint: Not being himself History of presenting complaint Patient's family doctor is, Dr. Nahum Alberto. As per ER notes: "Patient is a 65-year-old male with past medical history of alcoholism who presents to the emergency department with reported altered mental status. Brother does accompany the patient helps provide the history. States that his brother drinks daily. He did speak with him on Monday and the patient was his normal intoxicated self. Yesterday was the patient's birthday. He was drinking heavily. States that he was talking to him on the phone and the patient was significantly confused. Reports that the patient was not familiar with his emmanuel hdate and was not answering questions appropriately. He thought this was due to his intoxicated state. Brother then checked on the patient earlier this morning. Patient reports that he did not have a drink after 6 PM last night. He continued to be confused. Patient denies previous history of stroke. Unsure if he fell and hit his head while intoxicated. Patient is not on any blood thinners. Reports that he does have a history of A. fib however had a cardioversion and has not had any issues. Patient denies any fevers or chills. No sick contacts. Does admit to a headache. No visual changes. Denies any weakness in his upper or lower extremities. Patient does have repetitive questioning however no dysarthria. No other alleviating, precipitating or modifying factors " During my history taking patient often forgetting things. And patient is concerned about the same. Patient does drink half a gallon of Jorge Alberto every 2 days. Also smokes about 2 packs a day. Patient does seem to forget things complains about his memory but then is able to answer questions. Review of systems: GEN.: Tired EYES: None HEENT: None NECK: None RESPIRATORY: None CARDIOVASCULAR: None GASTROINTESTINAL: None GENITOURINARY: None MUSCULOSKELETAL: None LYMPHATICS: None HEMATOLOGICAL: None PSYCHIATRY: None NEUROLOGICAL: Bit forgetful Past medical history to include: Atrial fibrillation, hypertension, sleep apnea uses CPAP, alcohol use disorder Social history: Lives alone. Retired. Used to work for [employer]. Smokes 2 packs a day. Takes about half a gallon every other day of Jorge Alberto. Family history: Noncontributory to presentation Physical examination: VITAL SIGNS: 98.5, 97, 18, 148/97, 98% on room air-upon presentation GENERAL: BMI 23.4, reclining in bed, not in distress. Spider nevi. Dupuytrens contracture EYES: Pupils equal. Conjunctiva normal. HEENT: External appearance of nose and ears normal, oral cavity grossly normal. NECK: JVD not raised; masses not palpable. HEART: First and second heart sounds are normal; no edema. LUNGS: Respiratory rate normal; decreased breath sounds. ABDOMEN: Soft, nontender, liver spleen not palpable, no masses palpable. PSYCH: Patient is awake alert. Sometimes hesitancy and recalling.l. NEUROLOGICAL: Cranial nerves grossly intact; no facial asymmetry, power and sensation grossly intact. LYMPHATICS: No lymph nodes palpable in the axilla and neck INVESTIGATIONS, reviewed in the clinical context: WBC 6.8 hemoglobin 8.1 platelets 191 potassium 4.2 creatinine 0.77 AST 67 ALT 82 troponin I less than 0.012 LDL 82 Serum alcohol less than 10 Influenza type A, type B, RSV, COVID 19 PCR: Not detected EKG tracing personally reviewed by me-atrial fibrillation with a rate of 98 Chest x-ray film personally reviewed by me-no acute process CT a head and neck: Moderate 50% stenosis of the left proximal ICA and less than 50% stenosis of the right proximal ICA. Near complete occlusion of the left MCA proximal M2 segment posterior division. CT brain without contrast: Left MCA territory hypoattenuating area. 2-D echo: EF 55-60%. Bubble study of poor quality Assessment and plan: -Acute left MCA territory stroke. Possible embolic given a history of atrial fibrillation. Patient on aspirin, Plavix. Lipitor. Neurology consulted. MRI ordered. -Bilateral ICA stenosis in the range of 50%. Not significant -Chronic, alcohol use disorder CIWA scale. Thiamine added -Alcoholic liver disease, chronic Follow-up outpatient with GI -Mild cognitive impairment, could be from chronic alcohol use We will do a full [place] memory assessment by consulting speech -Persistent atrial fibrillation, rate controlled Use of anticoagulation to be careful if alcoholism is to persist. -Essential hypertension Increased dose of Lopressor. Will also help the sympathetic drive of alcohol withdrawal. Plan: Care was discussed with the patient. Consultation to cardiology neurology. Speech therapy. CIWA scale. Given the complexity and severity of patient's condition expect the patient to be in the hospital at least for 2 overnights Past Medical History Past Medical History: Atrial Fibrillation, Hypertension, Sleep Apnea/CPAP/BIPAP Additional Past Medical History / Comment(s): CPAP. PATIENT STATES HIS BLOOD PRESSURE HAS BEEN ELEVATED RECENTLY. ETOH abuse History of Any Multi-Drug Resistant Organisms: None Reported Past Surgical History: Back Surgery Additional Past Surgical History / Comment(s): CERVICAL. Past Anesthesia/Blood Transfusion Reactions: No Reported Reaction Past Psychological History: No Psychological Hx Reported Smoking Status: Current every day smoker Past Alcohol Use History: Abuse Additional Past Alcohol Use History / Comment(s): PAST HX OF ABUSE Past Drug Use History: None Reported, Marijuana Medications and Allergies Home Medications Medication Instructions Recorded Confirmed Type Acetaminophen Tab [Tylenol] 325 mg PO DAILY PRN 08/24/20 08/24/20 History Allergies Allergy/AdvReac Type Severity Reaction Status Date / Time Penicillins Allergy Unknown Verified 08/24/20 19:11 Childhood Physical Exam Vitals: Vital Signs Temp Pulse Pulse Resp BP BP Pulse Ox 08/25/20 08:00 98.2 F 97 16 153/90 97 08/25/20 03:35 98 F 88 17 145/92 97 08/24/20 23:29 98 19 155/98 99 08/24/20 21:30 97.7 F 72 19 165/98 99 08/24/20 20:29 83 18 143/98 97 08/24/20 19:28 102 H 18 151/109 98 08/24/20 16:02 98.5 F 97 18 148/97 98 Intake and Output 08/24/20 08/25/20 08/25/20 22:59 06:59 14:59 Other: # Voids 1 Weight 81.647 kg 78.2 kg Results CBC & Chem 7: 08/24/20 16:25 08/24/20 16:25 Labs: Abnormal Lab Results - Last 24 Hours (Table) 08/24/20 08/24/20 Range/Units 16:25 16:25 Hgb 18.1 H (13.0-17.5) gm/dL MCV 100.3 H (80.0-100.0) fL MCH 35.6 H (25.0-35.0) pg Lymphocytes # 0.8 L (1.0-4.8) k/uL Sodium 130 L (137-145) mmol/L Chloride 97 L (98-107) mmol/L Glucose 135 H (74-99) mg/dL Total Bilirubin 1.5 H (0.2-1.3) mg/dL AST 67 H (17-59) U/L ALT 82 H (4-49) U/L Thrombosis Risk Factor Assmnt - Choose All That Apply Any of the Below Risk Factors Present?: No Each Risk Factor Represents 2 Points: Age 61-74 years Other congenital or acquired thrombophilia - If yes, enter type in comment: No Thrombosis Risk Factor Assessment Total Risk Factor Score: 2 Thrombosis Risk Factor Assessment Level: Low Risk
[2020-08-25] MEDS: ATORVASTATIN 40 MG TAB PO SCH (20:13)
[2020-08-25] MEDS: METOPROLOL TARTRATE 25 MG TAB PO SCH (20:13)
[2020-08-25 22:03] LABS: Appearance,Urine Clear (Clear); Bilirubin,Urine Negative (Negative); Blood,Urine Negative (Negative); Color,Urine Light Yellow; Glucose,Urine (UA) Negative (Negative); Ketones,Urine Negative (Negative); Leukocyte Esterase,Urine Negative (Negative); Nitrite,Urine Negative (Negative); Protein,Urine Negative (Negative); Specific Gravity,Urine 1.009 (1.001-1.035)
[2020-08-25 22:14] LABS: Amphetamine Screen,Urine Not Detected (NotDetected); Barbiturate Screen,Urine Not Detected (NotDetected); Benzodiazepines Screen,Urine Detected (NotDetected); Cocaine Screen,Urine Not Detected (NotDetected); Methadone Screen, Urine Not Detected (NotDetected); Opiate Screen,Urine Not Detected (NotDetected); Oxycodone Screen, Urine Not Detected (NotDetected); Phencyclidine Screen,Urine Not Detected (NotDetected); Tricyclic Antidepressant,Urine Not Detected (NotDetected); Urn Cannabinoid Scrn Not Detected (NotDetected)
[2020-08-26] MEDS: RIVAROXABAN 15 MG TAB PO SCH ×2 (06:31→16:48)
[2020-08-26] MEDS: THIAMINE 100 MG TAB PO SCH ×2 (06:31→16:48)
[2020-08-26] MEDS: ASPIRIN 81 MG PO SCH (08:49)
[2020-08-26] MEDS: METOPROLOL TARTRATE 25 MG TAB PO SCH ×2 (08:50→20:13)
[2020-08-26] MEDS: FAMOTIDINE 20 MG TAB PO SCH ×2 (08:50→20:13)
[2020-08-26] MEDS ORDERED: ASPIRIN 325 MG TAB PO SCH (09:00)
[2020-08-26] MEDS ORDERED: CLOPIDOGREL 75 MG TAB PO SCH (09:00)
[2020-08-26] MEDS: ACETAMINOPHEN TAB 500 MG TAB PO PRN (09:09)
--- NOTE | 2020-08-26 13:18 | P.PN ---
Subjective HISTORY OF PRESENTING ILLNESS This is a pleasant 65-year-old male past medical history significant for SVT, paroxysmal atrial fibrillation and atrial flutter, hypertension, alcohol use, chronic nicotine dependence.. He follows in the office with Dr. Magdaleno. We have been asked to see in consultation for atrial fibrillation . Patient is seen and examined no acute distress. Patient presented to the emergency department yesterday brought in by a friend for possible stroke. On 08/21/2020 patient had a blackout spell, he does not remember distress about this. CT of the head showed interval left MCA territory hypoattenuation, suggestive of a s ubacute/chronic infarct. Superimposed acute infarct cannot be excluded. CT of the head and the neck revealed near complete occlusion of the proximal left MCA M2 segment posterior division. Moderate left and mild right proximal ICA stenosis. Chest x-ray showed no acute cardiopulmonary process. EKG revealed atrial fibrillation, heart rate 98, left axis deviation. Patient denies history of diabetes, previous stroke, or [place]. troponin negative 1, COVID-19 negative, In 2014: Holter Monitor (09/2014) revealed sinus rhythm and paroxysmal atrial fibrillation with RVR. Event recorder12/2014- revealed sinus rhythm, short bursts of atrial tachyc ardia. Atrial tachycardia initiates atrial flutter and subsequently degenerates into atrial fibrillation. 02/2015: Patient underwent Diagnostic EP study revealing AV afshan reentry. Successful mapping and ablation was performed and successful slow pathway modification was performed. Flutter ablation was not performed. Most recent Holter monitor results in 2016revealed sinus mechanism with heart rate ranging from 50-107, no bradycardia, no pauses, no arrhythmia Echocardiogram 08/25/20: EF 55-60%, bubble study done to rule out shunt. Due to poor image quality unable to rule out shunt. Aortic valve not well visualized, mitral valve not well visualized, trace tricuspid regurgitation. MRI Brain 08/25/20: Confirmation of evolving acute infarct left MCA distribution large central defect in the left temporal lobe with some left parietal lobe extension 08/26/20: Patient seen and examined at bedside, no acute distress. Denies chest pain, palpitations, shortness of breath. Blood pressure is 149/99, heart rate 72, afebrile, maintaining oxygen saturation is 94% on room air. Telemetry tracings indicate atrial fibrillation heart rate 60s to 80s. Laboratory reviewed,renal function stable, sodium 1:30, potassium 4.2, triglycerides 103, cholesterol 135, LDL 82, HDL 52 Patient currently being maintained on atorvastatin 40 mg nightly, aspirin 81 mg daily, metoprolol tartrate 25 mg twice day, Xarelto 15 mg twice a day PHYSICAL EXAMINATION CONSTITUTIONAL: No apparent distress. HEENT: Head is normocephalic. No JVD. No carotid bruit. CHEST EXAMINATION: Lungs are clear to auscultation. HEART EXAMINATION: Irregular rate and rhythm. S1, S2 heard. ABDOMEN: Soft, nontender. Positive bowel sounds. EXTREMITIES: 2+ peripheral pulses, no lower extremity edema and no calf tenderness. NEUROLOGIC EXAMINATION: Patient is awake, alert and oriented x3. ASSESSMENT Paroxysmal atrial fibrillation- [id number] score 3 Acute subacute ischemic stroke involving left MCA vascular territoryNeurology following Hypertension History of atrial flutter Alcohol dependence- drinks half of a gallon of [employer] every day Nicotine dependence- smoked 1-2 PPD for the last 50 yeras PLAN Continue metoprolol tartrate 12.5mg BID Patient started on Xarelto 15mg BID Neurology following Continue telemetry Smoking and alcohol cessation discussed and encouraged with patient On discharge, patient to follow up with Dr. Magdaleno within 2 weeks Nurse Practitioner note has been reviewed, I agree with a documented findings and plan of care. Patient was seen and examined. Objective - Vital Signs Vital signs: Vital Signs Temp 97.7 F 08/26/20 11:22 Pulse 69 08/26/20 11:22 Resp 18 08/26/20 11:22 BP 113/76 08/26/20 11:22 Pulse Ox 98 08/26/20 11:22 Intake & Output 08/25/20 08/26/20 08/26/20 18:59 06:59 18:59 Intake Total 1840 540 Output Total 400 Balance 1840 140 Intake: Intake, IV Titration 500 Amount 0.9% NaCl with KCl 20 Meq 500 /l 1,000 ml @ 100 mls/hr IV .Q10H ABILIO Rx#: [id number] Oral 1340 540 Output: Urine 400 - Labs CBC & Chem 7: 08/24/20 16:25 08/24/20 16:25 Labs: Abnormal Lab Results - Last 24 Hours (Table) 08/25/20 Range/Units 21:26 U Benzodiazepines Scrn Detected H (NotDetected)
--- NOTE | 2020-08-26 18:03 | P.PN ---
Subjective Progress Note Date: 08/26/20 Patient was seen for a follow-up. Patient is fully alert and awake. Normal mental status. Patient's daughter was also present, who is a pharmacist, very well aware of patient's condition and medical status. Telemetry monitoring showing atrial fibrillation with heart rate in 70. Objective - Vital Signs Vital signs: Vital Signs Temp 97.8 F 08/26/20 15:16 Pulse 104 H 08/26/20 15:16 Resp 16 08/26/20 15:16 BP 158/98 08/26/20 15:16 Pulse Ox 96 08/26/20 15:16 Intake & Output 08/25/20 08/26/20 08/26/20 18:59 06:59 18:59 Intake Total 1840 910 Output Total 400 Balance 1840 510 Intake: IV 10 0.9 10 Intake, IV Titration 500 Amount 0.9% NaCl with KCl 20 Meq 500 /l 1,000 ml @ 100 mls/hr IV .Q10H ABILIO Rx#: [id number] Oral 1340 900 Output: Urine 400 - Exam On examination patient's mental status is normal. Speech is fluent, no perseveration noted. Patient however can name very well. Patient's repetition also has improved today. Able to repeat short sentences and can repeat few wor ds of longer sentences. Patient has intact comprehension. Headache has improved. On cranial examination, pupils are round and reacting to light, visual briceno are full on confrontation, extraocular muscles are intact with no nystagmus. Face is symmetric, tongue protrudes to the midline. Palatal elevation and sensation normal, hearing and shoulder shrug normal, facial sensation normal. Shoulder shrug normal. On muscle strength testing, there is no pronator drift and the strength is normal in arms and legs distally and proximally. Deep tendon reflexes are 1+ to 2+ and plantars are downgoing. Sensory to touch is equal with no neglect. Cerebellar function showed no ataxia for [id number] testing. No dysdiadochokinesia. Tone and bulk of muscles normal. Gait deferred. On general examination, there is no carotid bruit or murmur, S1-S2 audible. Abdomen is soft nontender. - Labs CBC & Chem 7: 08/24/20 16:25 08/24/20 16:25 Labs: Abnormal Lab Results - Last 24 Hours (Table) 08/25/20 Range/Units 21:26 U Benzodiazepines Scrn Detected H (NotDetected) Assessment and Plan Assessment: * Acute to subacute ischemic stroke involving the left MCA vascular territory. The stroke probably happened likely 3 days prior to arrival, on Monday evening. Patient's clinical symptoms consist of mainly conduction aphasia with no other deficits. CTA of head and neck showed near-complete occlusion of the proximal left MCA, M2 segment posterior division. Mechanism of stroke likely cardioembolic from new onset atrial fibrillation. * History of alcoholism * Elevated liver enzymes, likely due to alcoholism * Tobacco use Plan: * MRI of the brain confirmed an evolving acute infarct left MCA distribution, largest effect on the left temporal lobe with some left parietal lobe extension. There is no signs of hemorrhagic conversion. * CTA of the head showed "near complete occlusion of the proximal left MCA M2 segment posterior division". * 2-D echo revealed atrial fibrillation. EF is 55-60%. Bubble study images were poor quality, therefore unable to rule out a shunt. * Telemetry monitoring showing atrial fibrillation with heart rate in 70s. * Fasting a.m. lipid panel with cholesterol 155, LDL 82, HDL 52 and triglycerides 103. * Hemoglobin A1c 5.4 normal. * Patient has history of alcoholism. No evidence of DTs at this time. * Recommend complete tobacco cessation. * Today is day #5 post CVA. Okay to start anticoagulation. Patient has been started on Xarelto. We will stop Plavix, and continue aspirin 81 mg. * Blood pressure running well 158/98. * Discussed with Dr. Monten[place]ro, and patient's daughter in detail.
[2020-08-26] MEDS: ATORVASTATIN 40 MG TAB PO SCH (20:13)
--- NOTE | 2020-08-26 21:54 | P.PN ---
Progress Note - Text Progress Note Date: 08/26/20 Chief Complaint: Not being himself History of presenting complaint Patient's family doctor is, Dr. Nahum Alberto. As per ER notes: "Patient is a 65-year-old male with past medical history of alcoholism who presents to the emergency department with reported altered mental status. Brother does accompany the patient helps provide the history. States that his brother drinks daily. He did speak with him on Monday and the patient was his normal intoxicated self. Yesterday was the patient's birthday. He was drinking heavily. States that he was talking to him on the phone and the patient was significantly confused. Reports that the patient was not familiar with his birthdate and was not answering questions appropriately. He thought this was due to his intoxicated state. Brother then checked on the patient earlier this morning. Patient reports that he did not have a drink after 6 PM last night. He continued to be confused. Patient denies previous history of stroke. Unsure if he fell and hit his head while intoxicated. Patient is not on any blood thinners. Reports that he does have a history of A. fib however had a cardioversion and has not had any issues. Patient denies any fevers or chills. No sick contacts. Does admit to a headache. No visual changes. Denies any weakness in his upper or lower extremities. Patient does have repetitive questioning however no dysarthria. No other alleviating, precipitating or modifying factors " During my history taking patient often forgetting things. And patient is concerned about the same. Patient does drink half a gallon of [employer] every 2 days. Also smokes about 2 packs a day. Patient does seem to forget things complains about his memory but then is able to answer questions. Discussed with Dr. Colon from neurology. It was decided to start the patient eliquis because of his embolic stroke. First dose to be started on August 26.. Aspirin cutback to 81 mg. Today: Sitting on bed. No tremors. Xarelto started this morning. No focal weakness. Sometimes difficulty in word finding. Review of systems: Was done for constitutional, cardiovascular, GI, pulmonary. relevant finding as above Active Medications Acetaminophen (Acetaminophen Tab 500 Mg Tab) 500 mg PO Q6HR PRN PRN Reason: Fever and/ or Pain Last Admin: 08/26/20 09:09 Dose: 500 mg Documented by: Aspirin (Aspirin 81 Mg) 81 mg PO DAILY [facility] Last Admin: 08/26/20 08:49 Dose: 81 mg Documented by: Atorvastatin Calcium (Atorvastatin 40 Mg Tab) 40 mg PO HS [facility] Last Admin: 08/26/20 20:13 Dose: 40 mg Documented by: Famotidine (Famotidine 20 Mg Tab) 20 mg PO BID [facility] Last Admin: 08/26/20 20:13 Dose: 20 mg Documented by: Lorazepam (Lorazepam 2 Mg/Ml Inj) 1 mg IV Q2HR PRN PRN Reason: CIWA 8 or 9 Lorazepam (Lorazepam 2 Mg/Ml Inj) 1 mg IV Q1HR PRN PRN Reason: CIWA 10 to 15 Metoprolol Tartrate (Metoprolol Tartrate 25 Mg Tab) 25 mg PO BID [facility] Last Admin: 08/26/20 20:13 Dose: 25 mg Documented by: Naloxone HCl (Naloxone 0.4 Mg/Ml 1 Ml Vial) 0.2 mg IV Q2M PRN PRN Reason: Opioid Reversal Rivaroxaban (Rivaroxaban 15 Mg Tab) 15 mg PO BID-W/MEALS [facility] Last Admin: 08/26/20 16:48 Dose: 15 mg Documented by: Thiamine HCl (Thiamine 100 Mg Tab) 100 mg PO BID-W/MEALS [facility] Last Admin: 08/26/20 16:48 Dose: 100 mg Documented by: Past medical history to include: Atrial fibrillation, hypertension, sleep apnea uses CPAP, alcohol use disorder Social history: Lives alone. Retired. Used to work for [employer]. Smokes 2 packs a day. Takes about half a gallon every other day of [employer]. Family history: Noncontributory to presentation Physical examination: VITAL SIGNS: 97.7, 69, 18, 70247, 98% room air GENERAL: BMI 23.4, comfortable Spider nevi. Dupuytrens contracture EYES: Pupils equal. Conjunctiva normal. NECK: JVD not raised; masses not palpable. HEART: First and second heart sounds are normal; no edema. LUNGS: Respiratory rate normal; decreased breath sounds. ABDOMEN: Soft, nontender, liver spleen not palpable, no masses palpable. PSYCH: Patient is awake alert. Sometimes hesitancy and recalling.l. NEUROLOGICAL: Occasional word finding difficulty INVESTIGATIONS, reviewed in the clinical context: WBC 6.8 hemoglobin 8.1 platelets 191 potassium 4.2 creatinine 0.77 AST 67 ALT 82 troponin I less than 0.012 LDL 82 Serum alcohol less than 10 Influenza type A, type B, RSV, COVID 19 PCR: Not detected EKG tracing personally reviewed by me-atrial fibrillation with a rate of 98 Chest x-ray film personally reviewed by me-no acute process CT a head and neck: Moderate 50% stenosis of the left proximal ICA and less than 50% stenosis of the right proximal ICA. Near complete occlusion of the left MCA proximal M2 segment posterior division. CT brain without contrast: Left MCA territory hypoattenuating area. 2-D echo: EF 55-60%. Bubble study of poor quality Assessment and plan: -Acute left MCA territory stroke. Possible embolic given a history of atrial fibrillation. Patient on aspirin, Lipitor. Started on xarelto -Bilateral ICA stenosis in the range of 50%. Not significant -Chronic, alcohol use disorder CIWA scale. Thiamine added -Alcoholic liver disease, chronic Follow-up outpatient with GI -Mild cognitive impairment, could be from chronic alcohol use We will do a full [place] memory assessment by consulting speech -Persistent atrial fibrillation, rate controlled Eliquis -Essential hypertension Lopressor 25 mg twice a day. Add chlorthalidone 25 mg a day. We will observe the patient for another 24 hours. Add chlorthalidone. Started on xarelto this morning. Discussed with the patient about his of abstaining from alcohol in the view of anticoagulation.
[2020-08-26] MEDS: CHLORTHALIDONE 25 MG TAB PO SCH (23:00)
[2020-08-27 04:57] VITALS: RESP 16
[2020-08-27] MEDS: THIAMINE 100 MG TAB PO SCH (06:11)
[2020-08-27] MEDS: RIVAROXABAN 15 MG TAB PO SCH (06:11)
[2020-08-27] MEDS: CHLORTHALIDONE 25 MG TAB PO SCH (08:44)
[2020-08-27] MEDS: FAMOTIDINE 20 MG TAB PO SCH (08:44)
[2020-08-27] MEDS: METOPROLOL TARTRATE 25 MG TAB PO SCH (08:44)
[2020-08-27] MEDS: ASPIRIN 81 MG PO SCH (08:44)
[2020-08-27 08:48] VITALS: BP 136/90; PULSE 78; TEMP 98
[2020-08-27] MEDS: ACETAMINOPHEN TAB 500 MG TAB PO PRN (09:03)
--- NOTE | 2020-08-27 12:26 | P.PN ---
Subjective HISTORY OF PRESENTING ILLNESS This is a pleasant 65-year-old male past medical history significant for SVT, paroxysmal atrial fibrillation and atrial flutter, hypertension, alcohol use, chronic nicotine dependence.. He follows in the office with Dr. Magdaleno. We have been asked to see in consultation for atrial fibrillation . Patient is seen and examined no acute distress. Patient presented to the emergency department yesterday brought in by a friend for possible stroke. On 08/21/2020 patient had a blackout spell, he does not remember distress about this. CT of the head showed interval left MCA territory hypoattenuation, suggestive of a s ubacute/chronic infarct. Superimposed acute infarct cannot be excluded. CT of the head and the neck revealed near complete occlusion of the proximal left MCA M2 segment posterior division. Moderate left and mild right proximal ICA stenosis. Chest x-ray showed no acute cardiopulmonary process. EKG revealed atrial fibrillation, heart rate 98, left axis deviation. Patient denies history of diabetes, previous stroke, or [place]. troponin negative 1, COVID-19 negative, In 2014: Holter Monitor (09/2014) revealed sinus rhythm and paroxysmal atrial fibrillation with RVR. Event recorder12/2014- revealed sinus rhythm, short bursts of atrial tachyc ardia. Atrial tachycardia initiates atrial flutter and subsequently degenerates into atrial fibrillation. 02/2015: Patient underwent Diagnostic EP study revealing AV afshan reentry. Successful mapping and ablation was performed and successful slow pathway modification was performed. Flutter ablation was not performed. Most recent Holter monitor results in 2016revealed sinus mechanism with heart rate ranging from 50-107, no bradycardia, no pauses, no arrhythmia Echocardiogram 08/25/20: EF 55-60%, bubble study done to rule out shunt. Due to poor image quality unable to rule out shunt. Aortic valve not well visualized, mitral valve not well visualized, trace tricuspid regurgitation. MRI Brain 08/25/20: Confirmation of evolving acute infarct left MCA distribution large central defect in the left temporal lobe with some left parietal lobe extension 08/27/20: Patient seen and examined at bedside, no acute distress. Denies chest pain, palpitations, shortness of breath. Blood pressure is 136/90, heart rate 78 afebrile, maintaining oxygen saturation is 97% on room air. Telemetry tracings i ndicate atrial fibrillation heart rate 60s and 70s. No laboratory data today Patient currently being maintained on atorvastatin 40 mg nightly, aspirin 81 mg daily, metoprolol tartrate 25 mg twice day, Xarelto 15 mg twice a day PHYSICAL EXAMINATION CONSTITUTIONAL: No apparent distress. HEENT: Head is normocephalic. No JVD. No carotid bruit. CHEST EXAMINATION: Lungs are clear to auscultation. HEART EXAMINATION: Irregular rate and rhythm. S1, S2 heard. ABDOMEN: Soft, nontender. Positive bowel sounds. EXTREMITIES: 2+ peripheral pulses, no lower extremity edema and no calf tenderness. NEUROLOGIC EXAMINATION: Patient is awake, alert and oriented x3. ASSESSMENT Paroxysmal atrial fibrillation- [id number] score 3 Acute subacute ischemic stroke involving left MCA vascular territoryNeurology following Hypertension History of atrial flutter Alcohol dependence- drinks half of a gallon of [employer] every day Nicotine dependence- smoked 1-2 PPD for the last 50 yeras PLAN Continue metoprolol tartrate 25 mg BID and Xarelto 15 mg twice a day Smoking and alcohol cessation discussed and encouraged with patient From cardiology perspective patient can be discharged home. Patient to follow up with Dr. Magdaleno within 2 weeks Nurse Practitioner note has been reviewed, I agree with a documented findings and plan of care. Patient was seen and examined. Objective - Vital Signs Vital signs: Vital Signs Temp 98 F 08/27/20 08:40 Pulse 78 08/27/20 08:40 Resp 16 08/27/20 08:40 BP 136/90 08/27/20 08:40 Pulse Ox 97 08/27/20 08:40 Intake & Output 08/26/20 08/27/20 08/27/20 18:59 06:59 18:59 Intake Total 910 720 Output Total 400 500 Balance 510 -500 720 Intake: IV 10 0.9 10 Oral 900 720 Output: Urine 400 500 - Labs CBC & Chem 7: 08/24/20 16:25 08/24/20 16:25
--- NOTE | 2020-08-27 20:10 | P.DS ---
Providers Date of admission: 08/24/20 20:22 Expected date of discharge: 08/27/20 Attending physician: Maikel Montenegro Consults: 08/24/20 20:23 Consult Physician Urgent Consulting Provider: [facility] Consult Reason/Comments: afib Do you want consulting provider notified?: Yes Consult Physician Urgent Consulting Provider: Asif Chavez Consult Reason/Comments: acute cva Do you want consulting provider notified?: Yes Primary care physician: [facility] Course: Chief Complaint: Not being himself History of presenting complaint Patient's family doctor is, Dr. Nahum Alberto. As per ER notes: "Patient is a 65-year-old male with past medical history of alcoholism who presents to the emergency department with reported altered mental status. Brother does accompany the patient helps provide the history. States that his brother drinks daily. He did speak with him on Monday and the patient was his normal intoxicated self. Yesterday was the patient's birthday. He was drinking heavily. States that he was talking to him on the phone and the patient was significantly confused. Reports that the patient was not familiar with his birthdate and was not answering questions appropriately. He thought this was due to his intoxicated state. Brother then checked on the patient earlier this morning. Patient reports that he did not have a drink after 6 PM last night. He continued to be confused. Patient denies previous history of stroke. Unsure if he fell and hit his head while intoxicated. Patient is not on any blood thinners. Reports that he does have a history of A. fib however had a cardioversion and has not had any issues. Patient denies any fevers or chills. No sick contacts. Does admit to a headache. No visual changes. Denies any weakness in his upper or lower extremities. Patient does have repetitive questioning however no dysarthria. No other alleviating, precipitating or modifying factors " During my history taking patient often forgetting things. And patient is concerned about the same. Patient does drink half a gallon of [employer] [place] Alberto every 2 days. Also smokes about 2 packs a day. Patient does seem to forget things complains about his memory but then is able to answer questions. Discussed with Dr. Colon from neurology. It was decided to start the patient eliquis because of his embolic stroke. First dose to be started on August 26.. Aspirin cutback to 81 mg. Today: Patient doing much better today. Sometimes finding difficulty words felt to be secondary to his stroke. Otherwise up and about. No alcohol withdrawal symptom. I did discuss with patient about going home on Antabuse. Patient is quite confident about not doing better alcohol. Other questions were discussed. He also went speech evaluation for higher function testing. He'll follow-up with speech and about 3-4 weeks' time. Spoke with speech therapy. Outpatient follow-up with neurology, cardiology Discussion and discharge planning more than 35 minutes Consultation: Dr. Colon from neurology [facility] Past medical history to include: Atrial fibrillation, hypertension, sleep apnea uses CPAP, alcohol use disorder Social history: Lives alone. Retired. Used to work for [employer]. Smokes 2 packs a day. Takes about half a gallon every other day of [employer] [place]. Family history: Noncontributory to presentation Physical examination: VITAL SIGNS: 98, 78, 16, 136 bun 90, 97% room air GENERAL: BMI 23.4, comfortable Spider nevi. Dupuytrens contracture EYES: Pupils equal. Conjunctiva normal. NECK: JVD not raised; masses not palpable. HEART: First and second heart sounds are normal; no edema. LUNGS: Respiratory rate normal; decreased breath sounds. ABDOMEN: Soft, nontender, liver spleen not palpable, no masses palpable. PSYCH: Patient is awake alert. Sometimes hesitancy and recalling.l. NEUROLOGICAL: Occasional word finding difficulty INVESTIGATIONS, reviewed in the clinical context: WBC 6.8 hemoglobin 8.1 platelets 191 potassium 4.2 creatinine 0.77 AST 67 ALT 82 troponin I less than 0.012 LDL 82 Serum alcohol less than 10 Influenza type A, type B, RSV, COVID 19 PCR: Not detected EKG tracing personally reviewed by me-atrial fibrillation with a rate of 98 Chest x-ray film personally reviewed by me-no acute process CT a head and neck: Moderate 50% stenosis of the left proximal ICA and less than 50% stenosis of the right proximal ICA. Near complete occlusion of the left MCA proximal M2 segment posterior division. CT brain without contrast: Left MCA territory hypoattenuating area. 2-D echo: EF 55-60%. Bubble study of poor quality Assessment and plan: -Acute left MCA territory stroke. Likely embolic given a history of atrial fibrillation. Patient on aspirin, Lipitor. Started on xarelto -Bilateral ICA stenosis in the range of 50%. Not significant -Chronic, alcohol use disorder CIWA scale. Thiamine added -Alcoholic liver disease, chronic Follow-up outpatient with GI -Mild cognitive impairment, could be from chronic alcohol use We will do a full [place] memory assessment by consulting speech -Persistent atrial fibrillation, rate controlled Eliquis -Essential hypertension Lopressor 25 mg twice a day. Add chlorthalidone 25 mg a day. Cleared by cardiology and neurology to go home. Disposition: Home Plan - Discharge Summary Discharge Rx Participant: No New Discharge Prescriptions: New Chlorthalidone [Hygroton] 25 mg PO DAILY #30 tab Famotidine [Pepcid] 20 mg PO BID #60 tab Thiamine [Vitamin B-1] 100 mg PO BID-W/MEALS #60 tab Aspirin 81 mg PO DAILY #30 chew Atorvastatin [Lipitor] 40 mg PO HS #60 tab Metoprolol Tartrate [Lopressor] 25 mg PO BID #60 tab Rivaroxaban [Xarelto Starter Pack] 0 mg PO DIRECTED 30 Days #1 pack Discontinued Acetaminophen Tab [Tylenol] 325 mg PO DAILY PRN PRN Reason: Fever And/ Or Pain Discharge Medication List Aspirin 81 mg PO DAILY #30 chew 08/27/20 [Rx] Atorvastatin [Lipitor] 40 mg PO HS #60 tab 08/27/20 [Rx] Chlorthalidone [Hygroton] 25 mg PO DAILY #30 tab 08/27/20 [Rx] Famotidine [Pepcid] 20 mg PO BID #60 tab 08/27/20 [Rx] Metoprolol Tartrate [Lopressor] 25 mg PO BID #60 tab 08/27/20 [Rx] Rivaroxaban [Xarelto Starter Pack] 0 mg PO DIRECTED 30 Days #1 pack 08/27/20 [Rx] Thiamine [Vitamin B-1] 100 mg PO BID-W/MEALS #60 tab 08/27/20 [Rx] Follow up Appointment(s)/Referral(s): Jose A Magdaleno MD [STAFF PHYSICIAN] - 2 Weeks (Office to call patient with a follow up appointment date and time.) Desmond Alberto DO [Primary Care Provider] - 1 Week Марина Lowry NPC [Nurse Practitioner] - 09/02/20 8:00 am Gopal Bhardwaj MD [Medical Doctor] - 1 Week (Message left for office to call with an appointment date and time.) Patient Instructions/Handouts: A-fib (Atrial Fibrillation) (DC), Abuse of Alcohol (DC), Ischemic Stroke (DC) Activity/Diet/Wound Care/Special Instructions: Daughter is off on Wednesdays and will be the one to take patients to appts. Please make them on Wednesdays. Discharge Disposition: HOME SELF-CARE
== END 2020-08-27 14:44 | disposition home or self-care (01) | DRG 65 ==
LOC: EC 15:56 → 3SCARD 20:22
PROVIDERS: ADMIT Hospitalist; ATTEND Hospitalist
DX: I63.412 Cerebral infarction due to embolism of left middle cerebral artery (principal); I48.19 Other persistent atrial fibrillation; G93.40 Encephalopathy, unspecified; F10.239 Alcohol dependence with withdrawal, unspecified; R47.01 Aphasia; K70.9 Alcoholic liver disease, unspecified; G31.84 Mild cognitive impairment of uncertain or unknown etiology; Z20.822 Contact with and (suspected) exposure to COVID-19; R29.700 NIHSS score 0; Y90.0 Blood alcohol level of less than 20 mg/100 ml; I65.23 Occlusion and stenosis of bilateral carotid arteries; I10 Essential (primary) hypertension; G47.30 Sleep apnea, unspecified; M72.0 Palmar fascial fibromatosis [Dupuytren]; I78.1 Nevus, non-neoplastic; F17.210 Nicotine dependence, cigarettes, uncomplicated; Z71.6 Tobacco abuse counseling; Z87.39 Personal history of other diseases of the musculoskeletal system and connective tissue; Z60.2 Problems related to living alone; Z86.79 Personal history of other diseases of the circulatory system; Z98.890 Other specified postprocedural states; Z71.41 Alcohol abuse counseling and surveillance of alcoholic; Z88.0 Allergy status to penicillin
CPT/HCPCS: 36415; 70450; 70496; 70498; 70551; 71046; 80053; 80061; 80306; 80320; 81003; 82140; 82550; 83036; 84484; 85025; 85610; 85730; 87636; 93005; 93306; 96361; 96374; 99291

== ENCOUNTER 2020-10-22 06:32 | Day surgery (SDC) | payer BC ==
[2020-10-19 16:24] VITALS: BMI 22.4
[~2020-10-22 06:32] MED LIST: SODIUM CHLORIDE 0.9% 1,000 ML IV SCH
[2020-10-22 07:06] VITALS: RESP 16; TEMP 98
[2020-10-22] MEDS ORDERED: PROPOFOL 10 MG/ML 20 ML VIAL IV ONE (07:13)
[2020-10-22] MEDS ORDERED: LIDOCAINE 1% INJ 10MG/ML (20 ML MDV) ONE (07:13)
[2020-10-22] MEDS ORDERED: MIDAZOLAM 2 MG/2 ML VIAL ONE (07:13)
[2020-10-22] MEDS ORDERED: BENZOCAINE SPRAY 1 CAN MUCOUS MEM ONE (07:18)
[2020-10-22 07:35] LABS: African American GFR (CKD) >90 (>60 ml/min/1.73 sqM); Anion Gap 6 mmol/L; Blood Urea Nitrogen 14 mg/dL (9-20); Calcium 9.8 mg/dL (8.4-10.2); Carbon Dioxide 27 mmol/L (22-30); Chloride 105 mmol/L (98-107); Glucose 101 mg/dL (74-99); Non-African American GFR(CKD) >90 (>60 ml/min/1.73 sqM); Potassium 4.4 mmol/L (3.5-5.1); Sodium 138 mmol/L (137-145)
--- NOTE | 2020-10-22 07:50 | P.EPPROC ---
- EP Procedure Note Electrophysiology Procedure Note: Procedure Electrical cardioversion following SHASHI Diagnosis Persistent symptomatic atrial fibrillation History of CVA History of noncompliance History of alcohol abuse Current smoker Procedure At 360 J biphasic shock in the AP configuration converted to the patient in sinus rhythm in the 70s Plan Continue Xarelto Hold digoxin Continue metoprolol tartrate 25 mg twice daily Follow-up in 4 weeks
[2020-10-22 07:57] VITALS: PULSE 68
[2020-10-22 08:40] VITALS: BP 109/70
--- NOTE | 2020-10-22 13:21 | ECHOT ---
TRANSESOPHAGEAL ECHOCARDIOGRAM REFERRING PHYSICIAN: Dr. Magdaleno. INDICATION: Persistent atrial fibrillation, rule out intracardiac thrombus. PROCEDURE NOTE: After obtaining informed consent, transesophageal echocardiogram was performed in left lateral position using an Omni plane probe. Local and IV sedation were obtained by the gas controller. 2D color Doppler and evaluation and spectral analysis was performed. FINDINGS: 1. There is no intracardiac thrombus within the left atrial appendage, left atrium, right atrium or right ventricle. 2. Left atrium appears enlarged. 3. Right atrium and right ventricle within normal limits. 4. Left ventricle has normal size and systolic function. 5. Mitral valve is anatomically normal. 6. There is mild mitral regurgitation noted. 7. Aortic valve is a 3-leaflet valve. There is no evidence of aortic stenosis or regurgitation. 8. Tricuspid valve appears normal. 9. Interatrial septum: There is no evidence of [id number] shunt by color-flow Doppler or [id number] shunt by agitated saline contrast study. CONCLUSIONS: 1. No intracardiac thrombus. 2. Left atrium appears enlarged. 3. Normal LV function. PLAN: Patient will proceed with cardioversion. MMODL / IJN: [id number] /
== END 2020-10-22 09:23 | disposition home or self-care (01) ==
LOC: CATHCVL 06:32
PROVIDERS: ATTEND Internal Medicine Cardiovascular Disease
DX: I48.19 Other persistent atrial fibrillation (principal); I34.0 Nonrheumatic mitral (valve) insufficiency; F17.200 Nicotine dependence, unspecified, uncomplicated; Z79.01 Long term (current) use of anticoagulants; Z86.73 Personal history of transient ischemic attack (TIA), and cerebral infarction without residual deficits; I10 Essential (primary) hypertension; Z79.82 Long term (current) use of aspirin; Z79.899 Other long term (current) drug therapy; Z88.0 Allergy status to penicillin
CPT/HCPCS: 93312; 93320; 93325; 92960; 80048; 87635; J2250; J2001; J2704

== ENCOUNTER 2020-12-31 11:21 | Day surgery (SDC) | payer BC ==
[2020-12-30 11:35] VITALS: BMI 23.1
[~2020-12-31 11:21] MED LIST changes: +LACTATED RINGERS 1,000 ML IV SCH
[2020-12-31] MEDS ORDERED: SODIUM CHLORIDE 0.9% 1,000 ML IV ONE (11:39)
[2020-12-31] MEDS ORDERED: LIDOCAINE 1% INJ 10MG/ML (20 ML MDV) ONE ×2 (13:48→14:00)
[2020-12-31] MEDS ORDERED: PROPOFOL 10 MG/ML 20 ML VIAL IV ONE (14:00)
[2020-12-31] MEDS ORDERED: SUCCINYLCHOLINE CHLORIDE 100 MG/5 ML SYR IV ONE (14:00)
[2020-12-31] MEDS ORDERED: ROCURONIUM 10 MG/ML (5 ML VIAL) IV ONE (14:00)
[2020-12-31] MEDS ORDERED: PROTAMINE SULFATE 10 MG/ML 5 ML VIAL IV ONE ×2 (14:00→17:51)
[2020-12-31] MEDS ORDERED: MIDAZOLAM 2 MG/2 ML VIAL ONE (14:00)
[2020-12-31] MEDS ORDERED: fentaNYL (PF) 50 MCG/ML 2 ML AMP ONE (14:00)
[2020-12-31] MEDS ORDERED: ePHEDrine SULFATE/0.9% NACL/PF 50 MG/5 ML SYRINGE IV ONE (14:00)
[2020-12-31] MEDS ORDERED: PHENYLEPHRINE-0.9% NACL SYG 1,000 MCG/10 ML SYRINGE ONE (14:00)
[2020-12-31] MEDS ORDERED: HEPARIN SODIUM,PORCINE 10,000 UNIT/ML 1 ML VIAL ONE (14:00)
[2020-12-31] MEDS ORDERED: WATER FOR INJECTION, STERILE 10 ML VIAL IV ONE (14:00)
[2020-12-31] MEDS ORDERED: LIDOCAINE 1% INJ 10MG/ML (20 ML MDV) SQ ONE (14:57)
[2020-12-31] MEDS ORDERED: HEPARIN SOD,PORK IN 0.45% NACL 25,000 UNIT in 0.45% NACL 1 250ML.BAG IV ONE (15:36)
[2020-12-31] MEDS ORDERED: HEPARIN SODIUM (1,000 UNIT/ML) 1,000 UNIT in SODIUM CHLORIDE 0.9% 1,000 ML IRRIGATION ONE (15:36)
[2020-12-31] MEDS ORDERED: IOPAMIDOL-370 100ML BTL INJ ONE ×2 (15:36)
[2020-12-31] MEDS ORDERED: LACTATED RINGERS 1,000 ML IV ONE (16:20)
[2020-12-31] MEDS ORDERED: ACETAMINOPHEN TAB 325 MG TAB PO PRN (18:03)
--- NOTE | 2020-12-31 18:06 | P.PRLE ---
RE: Kaden Morrow Dear Radha Kaden underwent an A. fib ablation with successful termination outside the right superior pulmonary vein near the roof He did very well through the procedure I will continue anticoagulation for now and his other cardiac medications He must abstain from alcohol forever Thank you for entrusting me with the care of the patient Warm regards Sincerely Jose A Magdaleno
--- NOTE | 2020-12-31 18:22 | P.EPPROC ---
- EP Procedure Note Electrophysiology Procedure Note: PROCEDURE A. fib ablation DIAGNOSIS Atrial fibrillation, symptomatic, refractory to therapy Persistent, symptomatic and failed electrical cardioversion RESULT No left atrial appendage mass seen on intracardiac echo Successful A. fib ablation/pulmonary vein isolation of all veins using cryo- ablation Complete entrance block in all 4 veins confirmed No evidence for phrenic nerve injury Linear ablation in the left atrial roof with Cryoblation With the roof line was completed just outside the right superior pulmonary vein, A. fib terminated and he went to sinus rhythm Thereafter roofline completed Linear ablation in the posterior septum Esophageal deflection YES PROCEDURE DETAILS Patient was brought to the EP lab in a fasting state. Written informed consent was obtained prior to the procedure. Procedure performed under general anesthesia After initial muscle relaxant use, muscle relaxants were not given thereafter in order to assess phrenic nerve during procedure. Patient prepped and draped as per protocol Full cryo-set up with standard preparation of the cryoablation tools done. Femoral Venous access obtained on the right and left groins Venous and arterial Sheaths placed. Diagnostic catheters for the high right atrium, phrenic nerve stimulation and pacing, His bundle, RV and coronary sinus placed Intracardiac echo catheter placed. Long sheath placed in the right atrium Left and right transseptal catheterization performed under intracardiac echo guidance. Intravenous heparin with aCT above 300 Later, catheter positioning and balloon positioning in the left atrium, under intracardiac echo guidance Diagnostic EP study with Coronary sinus pacing and recording Sinus recovery times a 605 100 ms were 808 126 ms. Baseline measurements sinus cycle length 728 ms, NV 148 ms, QRS 91 ms and QT 393 ms AH 54 ms and HV 59 ms Atrial pacing performed from the high right atrium and the coronary sinus RV pacing: VA Wenckebach block to 90 ms AV node Wenckebach block less than 200 ms. 2 (two) seconds episode of atrial fibrillation, self terminated Transseptal catheterization performed RA pressure 14/8/11 LA pressure 24/4/10 Transseptal catheterization performed with standard sheath. The cryoablation sheath was then placed with an over the wire exchange without any acute complications. All 4 pulmonary veins were isolated in the following sequence: Left superior followed by left inferior followed by right superior followed by right inferior The cryo-ablation balloon was placed at the os of each vein 1.5 mL of IV dye was injected to confirm an occluded vein Goal during cryoablation was to achieve complete occlusion of the pulmonary vein, achieve -30 degrees C at 30 seconds and achieve -40 degrees C at 60 seconds and a time to effect of less than 60-90 seconds, . If not the balloon was repositioned to obtain this result After completion of Cryoblation with durations from 180-240 seconds, entrance block was confirmed with the Attain circular catheter in a roving fashion around the antrum of the pulmonary veins Phrenic nerve pacing was performed from the SVC, right innominate vein area and diaphragm voltage was monitored. Diaphragmatic contractions were also monitored manually for strength of contraction. Parameter goals for each cryo freeze Complete occlusion of the appropriate vein -30 degrees C by 30 seconds -40 degrees C by 60 seconds Minimum between minus 40-55 degrees C Thaw time greater than 10 seconds Balloon visualized by intracardiac echo The esophagus was intubated. Esophageal Temperature monitoring with a CIRCA catheter formed. Esophageal deflection for hypothermia of the esophagus below 30 degrees C Left superior pulmonary vein Complete isolation, entrance block Left inferior pulmonary vein Complete isolation, entrance block Right superior pulmonary vein, during phrenic nerve pacing Complete isolation, entrance block Right inferior pulmonary vein, during phrenic nerve pacing Complete isolation, entrance block Linear ablation with cryo balloon along the posterior roof of the LAD Termination of atrial fibrillation just outside the right superior pulmonary vein Long sheath exchanged. RF catheter placed 3-D electro-anatomic mapping performed line voltage map performed Pulmonary veins completely isolated and quiescent Linear ablation along the anterior roof to complete the roofline Linear ablation along the posterior septum, behind the transseptal puncture from the roof down to the right inferior pulmonary vein, along fractionated electrograms Complete line of block made The posterior septum completely isolated At the end of the procedure the Achieve catheter was once again used to check for entrance block Phrenic nerve stimulation was performed to confirm diaphragmatic stimulation the end of the procedure Cine fluoroscopy was performed at the very end of the procedure to confirm movement of both diaphragms with inspiration and expiration At the end of the procedure the patient was extubated Heparin was reversed Venous sheaths were removed and hemostasis assured. Vascade closure PROCEDURES PERFORMED Diagnostic EP study CS pacing and recording Left and right transseptal catheterization 3D mapping Intracardiac echocardiography Pulmonary vein isolation with transseptal and comprehensive EPS, [id number] Left atrial roof line, [id number] Linear ablation, left atrium, +[id number]
[2020-12-31] MEDS ORDERED: ACETAMINOPHEN IV (For NPO) 1,000 MG in EMPTY BAG 1 BAG IVPB ONE (18:30)
[2020-12-31] MEDS: METOPROLOL TARTRATE 25 MG TAB PO SCH (19:55)
[2020-12-31] MEDS: FAMOTIDINE 20 MG TAB PO SCH (19:55)
[2020-12-31] MEDS ORDERED: ATORVASTATIN 40 MG TAB PO SCH (21:00)
[2020-12-31] MEDS ORDERED: ASPIRIN 81 MG PO SCH (21:00)
[2020-12-31] MEDS ORDERED: RIVAROXABAN 20 MG TAB PO SCH (21:00)
[2021-01-01 01:23] VITALS: RESP 16
[2021-01-01] MEDS: METOPROLOL TARTRATE 25 MG TAB PO SCH (08:47)
[2021-01-01] MEDS: FAMOTIDINE 20 MG TAB PO SCH (08:47)
[2021-01-01] MEDS ORDERED: MECLIZINE 25 MG TAB PO STA (08:51)
[2021-01-01] MEDS ORDERED: SODIUM CHLORIDE 0.9% 500 ML 500 ML IV ONE (08:51)
[2021-01-01 09:51] LABS: Basophils % (A) 0 %; Eosinophils # (A) 0.1 k/uL (0-0.7); Eosinophils % (A) 1 %; HCT 40.3 % (39.0-53.0); HGB 13.5 gm/dL (13.0-17.5); Lymphocytes # (A) 0.9 k/uL (1.0-4.8); Lymphocytes % (A) 9 %; MCHC 33.4 g/dL (31.0-37.0); MCV 95.8 fL (80.0-100.0); Mean Platelet Volume 8.5; Monocytes # (A) 0.4 k/uL (0-1.0); Monocytes % (A) 4 %; Neutrophils # (A) 7.9 k/uL (1.3-7.7); Neutrophils % (A) 84 %; Platelet Count 244 k/uL (150-450); RDW 13.3 % (11.5-15.5); WBC 9.4 k/uL (3.8-10.6)
[2021-01-01 11:06] LABS: African American GFR (CKD) >90 (>60 ml/min/1.73 sqM); Anion Gap 7 mmol/L; Blood Urea Nitrogen 12 mg/dL (9-20); Calcium 8.6 mg/dL (8.4-10.2); Carbon Dioxide 25 mmol/L (22-30); Chloride 103 mmol/L (98-107); Glucose 122 mg/dL (74-99); Non-African American GFR(CKD) >90 (>60 ml/min/1.73 sqM); Sodium 135 mmol/L (137-145)
--- NOTE | 2021-01-01 11:16 | P.DS ---
Providers Attending physician: Jose A Magdaleno Primary care physician: Jared Hoang [facility] Hospital Course: This a 65-year-old male who underwent atrial fibrillation ablation with Dr. Magdaleno on 01/01/2021. The patient is doing well post procedure. Patient's groins are soft and no hematoma noted. Vital signs are stable. He is stable for discharge home today per Dr. Magdaleno. please see EMR for further hospital course details. PROCEDURES PERFORMED Diagnostic EP study CS pacing and recording Left and right transseptal catheterization 3D mapping Intracardiac echocardiography Pulmonary vein isolation with transseptal and comprehensive EPS, [id number] Discharge Diagnosis 1. Atrial fibrillation, s/p ablation Nurse practitioner note has been reviewed by physician. Signing provider agrees with the documented findings, assessment, and plan of care. Plan - Discharge Summary Discharge Rx Participant: No New Discharge Prescriptions: Continue Famotidine [Pepcid] 20 mg PO BID #60 tab Tamsulosin [Flomax] 0.4 mg PO DAILY Atorvastatin [Lipitor] 40 mg PO HS #60 tab Metoprolol Tartrate [Lopressor] 25 mg PO BID #60 tab Aspirin 81 mg PO HS Rivaroxaban [Xarelto] 20 mg PO HS Discharge Medication List Atorvastatin [Lipitor] 40 mg PO HS #60 tab 08/27/20 [Rx] Famotidine [Pepcid] 20 mg PO BID #60 tab 08/27/20 [Rx] Metoprolol Tartrate [Lopressor] 25 mg PO BID #60 tab 08/27/20 [Rx] Aspirin 81 mg PO HS 10/19/20 [History] Rivaroxaban [Xarelto] 20 mg PO HS 10/20/20 [History] Tamsulosin [Flomax] 0.4 mg PO DAILY 10/22/20 [History] Follow up Appointment(s)/Referral(s): Jose A Magdaleno MD [STAFF PHYSICIAN] - 1 Week Activity/Diet/Wound Care/Special Instructions: Post EP study - Ablation instructions 1. Keep access sites dry for 2 days. 2. No heavy lifting or straining for 2 days. 3. Avoid bending the hips repeatedly for 2 days. 4. You may go up and down stairs slowly Call if the following is noted 1. Bleeding, increasing swelling or pain at the access sites. 2. Increasing chest discomfort, especially upon taking a deep breath. 3. Increasing shortness of breath, at rest or with exertion. 4. Undue cough / phlegm 5. Difficulty or pain while swallowing. 6. Pain or change in color in the extremities. 7. Fever, chills, rigors. 8. Increasing headache or neurologic symptoms. 9. Dizziness, fainting, palpitations Continue same medications unchanged Do not stop Xarelto Discharge Disposition: HOME SELF-CARE
[2021-01-01 15:11] VITALS: BP 124/81; PULSE 87; TEMP 98.6
== END 2021-01-01 17:11 | disposition home or self-care (01) ==
LOC: CATHEP 11:21 → 6NMEDSUR 17:53 → CATHEP 01-01 17:11
PROVIDERS: ATTEND Internal Medicine Clinical Cardiac Electrophysiology
DX: I48.19 Other persistent atrial fibrillation (principal); E78.5 Hyperlipidemia, unspecified; F17.210 Nicotine dependence, cigarettes, uncomplicated; I48.3 Typical atrial flutter; Z79.01 Long term (current) use of anticoagulants; I49.3 Ventricular premature depolarization; Z79.82 Long term (current) use of aspirin; Z79.899 Other long term (current) drug therapy; Z88.0 Allergy status to penicillin; G47.33 Obstructive sleep apnea (adult) (pediatric); I10 Essential (primary) hypertension; J44.9 Chronic obstructive pulmonary disease, unspecified; Z86.73 Personal history of transient ischemic attack (TIA), and cerebral infarction without residual deficits; K21.9 Gastro-esophageal reflux disease without esophagitis
CPT/HCPCS: 93662; 93613; 93656; 93657; 80048; 85025; C1759; C1894 ×2; C1769 ×4; C1760; C1730 ×2; C1893; C1733; C1766; C1732; J2250; J2720; J1644 ×3; J2001; J3010; J2370; J0330; J2704; Q9967